=== PATIENT | female | born 1975 | race Caucasian/White ===

== ENCOUNTER 2023-09-15 09:03 | Outpatient (OUT) | payer OTHER, SELFPAY ==
[2023-09-15 09:49] LABS: Uric Acid 4.9 mg/dL (2.6-6.0)
== END 2023-09-15 09:04 | disposition home or self-care (01) ==
LOC: LAB 09:08
PROVIDERS: PCP Family Medicine; Visit Provider Family Medicine
DX: M25.50 Pain in unspecified joint (principal)
CPT/HCPCS: 36415; 84550

== ENCOUNTER 2024-06-04 12:26 | Outpatient (OUT) | payer OTHER, SELFPAY ==
--- NOTE | 2024-06-04 12:34 | ECG_ITS ---
[facility] Test Date: 2024-06-04 Pat Name: RUBIA FUNG Department: Room: - Gender: Female Operating Systems Specialist: : 1975 Requested By: Chun Early Order Number: [id number] Reading MD: PRATIK WILDER Measurements Intervals [place] Rate: 94 P: 59 [place]: 119 QRS: 34 QRSD: 83 T: 40 QT: 336 QTc: 420 Interpretive Statements SINUS RHYTHM WITH SHORT [place] INTERVAL No previous ECG available for comparison Electronically Signed On 06-04-2024 18:08:50 EDT by PRATIK WILDER
--- NOTE | 2024-06-04 13:13 | PM.PRESUREVA ---
History of Present Illness History of Present Illness Chief complaint: right shoulder cuff tear Narrative: Patient presents for preadmission testing. Please see HPI from Dr. Early dated May 31, 2024. Review of Systems ROS Narrative REVIEW OF SYSTEMS: Negative except as stated in HPI, ten or more systems reviewed. Constitutional: No fever, chills, weakness ENT: No sore throat or epistaxis Cardiovascular: No edema, chest pain, palpitations, or activity intolerance Respiratory: No shortness of breath, cough, or wheezing Gastrointestinal: No abdominal pain, constipation, diarrhea, or vomiting Genitourinary: No dysuria or hematuria Neurological: No numbness, tingling, weakness, or headache Psychiatric: No mood changes PFSH [facility] Medical History (Updated 06/04/24 @ 12:56 by Kacie Hinkle NP) Fibromyalgia ?M79.7 - Fibromyalgia (ICD-10) Gout ?M10.9 - Gout, unspecified (ICD-10) Neck pain ?M54.2 - Cervicalgia (ICD-10) Carpal tunnel syndrome ?G56.00 - Carpal tunnel syndrome, unspecified upper limb (ICD-10) Back pain ?M54.9 - Dorsalgia, unspecified (ICD-10) Arthritis ?M19.90 - Unspecified osteoarthritis, unspecified site (ICD-10) Depression ?F32.A - Depression, unspecified (ICD-10) COVID-19 ?U07.1 - COVID-19 (ICD-10) Seasonal allergies ?J30.2 - Other seasonal allergic rhinitis (ICD-10) Restless leg ?G25.81 - Restless legs syndrome (ICD-10) Migraine ?G43.909 - Migraine, unspecified, not intractable, without status migrainosus (ICD-10) GERD (gastroesophageal reflux disease) ?K21.9 - Gastro-esophageal reflux disease without esophagitis (ICD-10) Meralgia paraesthetica ?G57.10 - Meralgia paresthetica, unspecified lower limb (ICD-10) Endometriosis ?N80.9 - Endometriosis, unspecified (ICD-10) Shoulder pain ?M25.519 - Pain in unspecified shoulder (ICD-10) Rotator cuff tear ?M75.100 - Unspecified rotator cuff tear or rupture of unspecified shoulder, not specified as traumatic (ICD-10) Surgical History (Updated 06/04/24 @ 12:56 by Kacie Hinkle NP) History of arthroscopy of knee ?Z98.890 - Other specified postprocedural states (ICD-10) S/P cubital tunnel release ?Z98.890 - Other specified postprocedural states (ICD-10) History of carpal tunnel release ?Z98.890 - Other specified postprocedural states (ICD-10) History of carpal tunnel release ?Z98.890 - Other specified postprocedural states (ICD-10) History of section ?Z98.891 - History of uterine scar from previous surgery (ICD-10) History of section ?Z98.891 - History of uterine scar from previous surgery (ICD-10) History of hysterectomy ?Z90.710 - Acquired absence of both cervix and uterus (ICD-10) History of repair of rotator cuff ?Z98.890 - Other specified postprocedural states (ICD-10) Family History (Updated 06/04/24 @ 12:56 by Kacie Hinkle NP) Other Family history of breast cancer Family history of stroke Social History (Updated 06/04/24 @ 12:51 by Kacie Hinkle NP) Within the past year, how often did you have a drink containing alcohol: monthly or less Smoking status: Never smoker Non-prescribed substance use: denies use Previous occupational history: Customer Service Rep Highest level of school completed/degree received: high school graduate Meds Home Medications and Allergies Home Medications ?Medication ?Instructions ?Recorded ?Confirmed ?Type Lactobacil.acidophilus-Bifido.animalis 1 cap PO DAILY 06/04/24 06/04/24 History 5 billion cell sprinkle capsule (Probiotic) acetaminophen 500 mg capsule 1,000 mg PO Q6H PRN pain 06/04/24 06/04/24 History apple cider vinegar 600 mg capsule mg PO 06/04/24 History calcium 100 mg capsule mg PO 06/04/24 History duloxetine 30 mg capsule,delayed 30 mg PO BID 06/04/24 06/04/24 History release glucosamine sulf dipot cap PO 06/04/24 History chlr,msm,chond 550 mg-C 30 mg-ej 1 mg capsule (Glucosamine Chondroitin) multivitamin (Daily Multi-Vitamin 1 tab PO DAILY 06/04/24 06/04/24 History tablet) omeprazole 40 mg capsule,delayed 40 mg PO QPM 06/04/24 06/04/24 History release piroxicam 20 mg capsule 20 mg PO DAILY 06/04/24 06/04/24 History ropinirole 2 mg tablet 2 mg PO QPM 06/04/24 06/04/24 History sumatriptan succinate 50 mg tablet 50 mg PO Q2H 06/04/24 06/04/24 History topiramate 25 mg tablet 25 mg PO Q12H 06/04/24 06/04/24 History vitamin B complex 1 tab PO DAILY 06/04/24 06/04/24 History Allergies Allergy/AdvReac Type Severity Reaction Status Date / Time azithromycin Allergy hand Verified 06/04/24 12:42 swelling Exam Narrative Exam Narrative: Constitutional: Awake, alert, comfortable, well-appearing, nontoxic, interactive, vital signs as charted Head: Normocephalic, atraumatic Neck: Supple, normal appearance, normal range of motion, no meningeal signs, no lymphadenopathy Respiratory: No respiratory distress, breath sounds clear Cardiovascular: Regular rate and rhythm, strong and regular heart tones Skin: No rashes or induration, no lesions, only visible skin inspected Neuro: No neurological deficits, normal sensation Psychiatric: Oriented ?3, normal affect Assessment and Plan Assessment and Plan (1) Shoulder pain: (2) Rotator cuff tear: Plan Right shoulder arthroscopic rotator cuff repair and distal clavicle excision scheduled with Dr. Early June 14, 2024.
[2024-06-04 13:20] LABS: Basophils Percent Auto 0.4 % (0.2-2.0); Eosinophils Absolute Auto 0.1 10^3/uL (0.0-0.7); Eosinophils Percent Auto 1.4 % (0.9-7.0); Hematocrit 42.2 % (36.0-48.0); Hemoglobin 14.3 g/dL (12.0-16.0); Immature Granulocytes Abs Auto 0.01 10^3/uL (0.00-0.03); Immature Granulocytes Pct Auto 0.2 % (0.0-0.5); Lymphocytes Absolute Auto 1.7 10^3/uL (1.2-3.8); Lymphocytes Percent Auto 29.9 % (20.5-60.0); Mean Corpuscular HGB Conc 33.9 g/dL (29.9-35.2); Mean Corpuscular Hemoglobin 31.5 pg (26.7-34.0); Mean Platelet Volume 9.1 fL (9.5-13.5); Monocytes Absolute Auto 0.5 10^3/uL (0.3-0.8); Monocytes Percent Auto 8.8 % (1.7-12.0); Neutrophils Absolute Auto 3.4 10^3/uL (1.4-6.5); Neutrophils Percent Auto 59.3 % (43.0-75.0); Platelet Count 233 10^3/uL (150-450); Red Blood Count 4.54 10^6/uL (4.20-5.40); Red Cell Distribution Width 11.5 % (11.0-15.0); White Blood Count 5.7 10^3/uL (4.0-11.0)
[2024-06-04 14:20] LABS: Anion Gap 15.8; BUN Creatinine Ratio 27.3; Calcium 8.9 mg/dL (8.5-10.1); Carbon Dioxide 23.3 mmol/L (21.0-32.0); Chloride 103 mmol/L (98-107); Estimated GFR (African America >60 (>=60); Estimated GFR (Non-African Ame >60 (>=60); Glucose 105 mg/dL (74-106); Potassium 4.1 mmol/L (3.5-5.1); Sodium 138 mmol/L (136-145)
== END 2024-06-04 12:27 | disposition home or self-care (01) ==
LOC: PST 12:27
PROVIDERS: PCP Family Medicine; Visit Provider Orthopaedic Surgery
DX: Z01.810 Encounter for preprocedural cardiovascular examination (principal); Z01.812 Encounter for preprocedural laboratory examination; Z01.818 Encounter for other preprocedural examination; M75.121 Complete rotator cuff tear or rupture of right shoulder, not specified as traumatic
CPT/HCPCS: 80048; 85025; 93005; G0463

== ENCOUNTER 2024-06-14 11:55 | Day surgery (SDC) | payer OTHER, SELFPAY ==
[2024-06-04 13:09] VITALS: BP 109/75; PULSE 96; TEMP 36.4; O2SAT 94; BMI 33.2
[2024-06-14] VITALS (11 sets, daily range): BP systolic 106–121; BP diastolic 58–80; PULSE 71–96; TEMP 36.2–36.4; O2SAT 90–98; BMI 33.4
[2024-06-14 12:33] LABS: Basophils Percent Auto 0.3 % (0.2-2.0); Eosinophils Absolute Auto 0.1 10^3/uL (0.0-0.7); Eosinophils Percent Auto 1.4 % (0.9-7.0); Hemoglobin 13.2 g/dL (12.0-16.0); Lymphocytes Absolute Auto 1.3 10^3/uL (1.2-3.8); Lymphocytes Percent Auto 38.3 % (20.5-60.0); Mean Corpuscular Hemoglobin 31.3 pg (26.7-34.0); Mean Corpuscular Volume 94.8 fL (81.0-99.0); Mean Platelet Volume 9.1 fL (9.5-13.5); Monocytes Absolute Auto 0.3 10^3/uL (0.3-0.8); Monocytes Percent Auto 7.4 % (1.7-12.0); Neutrophils Absolute Auto 1.8 10^3/uL (1.4-6.5); Neutrophils Percent Auto 52.6 % (43.0-75.0); Platelet Count 203 10^3/uL (150-450); Red Blood Count 4.22 10^6/uL (4.20-5.40); Red Cell Distribution Width 11.6 % (11.0-15.0); White Blood Count 3.5 10^3/uL (4.0-11.0)
[2024-06-14] MEDS: LACTATED RINGER'S SOLUTION 1,000 ML 50 ML IV ×2 (12:48→15:31)
[2024-06-14] MEDS: CEFAZOLIN SODIUM/DEXTROSE,ISO 2 GM/50 ML PIGGYBACK IV (13:41)
--- NOTE | 2024-06-14 13:54 | PM.ORPRC ---
Procedure Note Date of procedure: 06/14/24 Pre-op diagnosis: 1. Right shoulder rotator cuff tear 2. Right acromioclavicular joint arth Procedure: Operation: Right shoulder arthroscopic rotator cuff repair Right shoulder arthroscopic distal clavicle excision Operative procedure: After informed consent was obtained the patient is brought to the operating room where general anesthetic was administered. Preoperatively regional block was placed. Patient was placed in the beachchair position. Exam under anesthesia the right shoulder revealed full range of motion and no instability. The right shoulder was prepped and draped in usual sterile fashion. Diagnostic arthroscopy was performed the standard anterior, posterior, and lateral arthroscopy portals. Findings included partial-thickness tear of the upper 2 cm of subscapularis tendon. Biceps tendon was intact without any tearing. Labrum was intact circumferentially. Grade III chondromalacia upper 1 cm humeral head which was debrided with arthroscopic shaver back to stable edge. Prior supraspinatus repair was torn. There was 2 components to the tear that was delaminated. The superior portion was severely degenerative and this was debrided to more healthy tissue back to the glenoid which was where the inferior delaminated portion was which was not degenerative. Infraspinatus was intact. Axillary recess had no loose bodies. Attention was turned to repair of the subscapularis tendon. Lesser tuberosity was debrided down to bleeding bed of bone. Degenerative subscapularis was debrided to more healthy tissue at the tear site. 1 Arthrex 5.5 FT bio composite suture anchor was placed in the lesser tuberosity. 90 degree suture lasso was used to pass 2 sutures through the torn subscapularis. These were then tied in a simple fashion repairing the tendon back down to the bone. Arthroscope was introduced in the subacromial space and there was minimal bursal inflammation was removed the arthroscopic shaver. In the distal clavicle was identified and found to be arthritic. Distal 7 mm of clavicle excised with arthroscopic shaver. There was a large cyst within the distal clavicle. Attention was next turned to the rotator cuff repair of the supraspinatus. Arthrex suture tape and 1 Arthrex fiber tape were placed in an inverted horizontal fashion through both delaminated portions of the torn rotator cuff. These were then repaired to the greater tuberosity with 1 Arthrex 5.5 swivel lock. Solid repair was achieved. Shoulder was drained of arthroscopy fluid. Portals were closed with a nylon suture. Sterile dressing was placed. UltraSling was placed. Patient was awakened and brought to the recovery room in stable condition. There were no intraoperative or immediate postoperative complications. Anesthesia: GETA and regional Surgeon: Chun Early Estimated blood loss (mL): 5 Pathology: none sent Condition: stable Disposition: PACU
[2024-06-14] MEDS: EPINEPHRINE HCL PF 1 MG/ML AMPULE 4 MG IO (15:35)
== END 2024-06-14 17:14 | disposition home or self-care (01) ==
PROVIDERS: Anesthesiology; PCP Family Medicine; Visit Provider Orthopaedic Surgery
PROC: (CPT 1630; principal; 2024-06-14 13:40)
DX: M75.121 Complete rotator cuff tear or rupture of right shoulder, not specified as traumatic (principal); M19.011 Primary osteoarthritis, right shoulder; Z90.710 Acquired absence of both cervix and uterus; M79.7 Fibromyalgia; G89.29 Other chronic pain; K21.9 Gastro-esophageal reflux disease without esophagitis
CPT/HCPCS: 29824; 29827; 36415; 64415; 85025; C1713; J0690; J1100; J1885; J2250; J2371; J2405; J2704; J2710; J3010

== ENCOUNTER 2024-07-02 08:00 | Outpatient (OUT) | payer OTHER, SELFPAY ==
[2024-07-02 08:37] LABS: Basophils Percent Auto 0.3 % (0.2-2.0); Eosinophils Absolute Auto 0.1 10^3/uL (0.0-0.7); Eosinophils Percent Auto 2.4 % (0.9-7.0); Hematocrit 38.4 % (36.0-48.0); Hemoglobin 12.8 g/dL (12.0-16.0); Lymphocytes Absolute Auto 1.4 10^3/uL (1.2-3.8); Lymphocytes Percent Auto 37.3 % (20.5-60.0); Mean Corpuscular HGB Conc 33.3 g/dL (29.9-35.2); Mean Corpuscular Hemoglobin 30.8 pg (26.7-34.0); Mean Corpuscular Volume 92.3 fL (81.0-99.0); Mean Platelet Volume 9.1 fL (9.5-13.5); Monocytes Absolute Auto 0.3 10^3/uL (0.3-0.8); Monocytes Percent Auto 7.6 % (1.7-12.0); Neutrophils Percent Auto 52.4 % (43.0-75.0); Platelet Count 235 10^3/uL (150-450); Red Blood Count 4.16 10^6/uL (4.20-5.40); Red Cell Distribution Width 11.5 % (11.0-15.0); White Blood Count 3.8 10^3/uL (4.0-11.0)
[2024-07-02 09:07] LABS: Estimated Average Glucose 103 mg/dL; Glycohemoglobin A1C 5.2 % (4.5-6.2)
[2024-07-02 09:17] LABS: Alanine Aminotransferase 45 U/L (14-59); Albumin Globulin Ratio 1.1; Albumin Level 4.1 g/dL (3.4-5.0); Alkaline Phosphatase 88 U/L (46-116); Anion Gap 14.5; Aspartate Amino Transferase 20 U/L (15-37); Bilirubin Direct 0.1 mg/dL (0.0-0.2); Bilirubin Total 0.7 mg/dL (0.2-1.0); Calcium 9.5 mg/dL (8.5-10.1); Carbon Dioxide 26.4 mmol/L (21.0-32.0); Chloride 104 mmol/L (98-107); Chol HDL Ratio 5.1; Cholesterol 264 mg/dL (<=200); Estimated GFR (African America >60 (>=60); Estimated GFR (Non-African Ame >60 (>=60); Globulin 3.6 g/dL; Glucose 98 mg/dL (74-106); HDL Cholesterol 52 mg/dL (40-60); Potassium 3.9 mmol/L (3.5-5.1); Sodium 141 mmol/L (136-145); Total Protein 7.7 g/dL (6.4-8.2); Triglycerides 235 mg/dL (<=150)
[2024-07-03 04:08] LABS: Estradiol <5.0 pg/mL (.); Progesterone 0.2 ng/mL (.)
[2024-07-03 08:11] LABS: DHEA-Sulfate 75.7 ug/dL (41.2-243.7)
[2024-07-06 15:09] LABS: Estrone, Serum 16 pg/mL (.)
[2024-07-10 00:08] LABS: Estrogens, Total 41 pg/mL (.)
== END 2024-07-02 08:01 | disposition home or self-care (01) ==
PROVIDERS: PCP Family Medicine; Visit Provider Family Medicine
DX: Z00.00 Encounter for general adult medical examination without abnormal findings (principal); Z78.0 Asymptomatic menopausal state; E66.9 Obesity, unspecified
CPT/HCPCS: 36415; 80048; 80061; 80076; 82627; 82670; 82672; 82679; 83036; 84144; 84443; 85025

== ENCOUNTER 2024-07-07 08:54 | Outpatient (OUT) | payer OTHER, SELFPAY ==
--- NOTE | 2024-07-07 08:57 | XR_ITS ---
[address] [address] Patient Name: RUBIA FUNG MRN: [id number] date: 1975 Sex: F Assigned Patient Location: [facility] Current Patient Location: [facility] Accession/Order Number: [id number] Exam Date: 07/07/2024 09:20 Report Date: 07/07/2024 11:37 At the request of: DEREK RAMIREZ Procedure: XR DEXA axial skeleton EXAMINATION: XR DEXA axial skeleton HISTORY: Osteopenia Of Lumbar Spine COMPARISON: DEXA bone densitometry 02/20/2018 TECHNIQUE: Dual-energy X-ray absorptiometry (DXA) was performed. FINDINGS: SPINE ANALYSIS: Average bone mineral density is 0.968 g/cm2. T-score (standard deviation relative to young adult mean): -1.9 . -8.3% change since prior study. HIP ANALYSIS: Lowest bone mineral density is within the left femoral neck, 0.768 g/cm2. T-score (standard deviation relative to young adult mean): -1.9 . -10.7% change since prior study. XR/XR DEXA axial skeleton IMPRESSION: World Health Organization Classification: Osteopenia - Moderate Fracture Risk FRAX: Cannot calculate. Pharmacologic treatment recommendations * No uniform recommendation applies to all patients. Management plans must be individualized. * Consider initiating pharmacologic treatment in postmenopausal women and men >= 50 years of age who have the following: Primary fracture prevention: * T-score <= - 2.5 at the femoral neck, total hip, lumbar spine, 33% radius (some uncertainty with existing data) by DXA. * Low bone mass (osteopenia: T-score between - 1.0 and - 2.5) at the femoral neck or total hip by DXA with a 10-year hip fracture risk >= 3% or a 10-year major osteoporosis-related fracture risk >= 20% (i.e., clinical vertebral, hip, forearm, or proximal humerus) based on the [place]-adapted FRAXregistered model. Secondary fracture prevention: * Fracture of the hip or vertebra regardless of BMD [4, 5]. * Fracture of proximal humerus, pelvis, or distal forearm in persons with low bone mass (osteopenia: T-score between - 1.0 and - 2.5). The decision to treat should be individualized in persons with a fracture of the proximal humerus, pelvis, or distal forearm who do not have osteopenia or low BMD [12, 13]. David MS, Melissa SL, Gabriel KL, Luther EM, Bull KG, AJ, Miguelina ES. The clinician's guide to prevention and treatment of osteoporosis. Osteoporos Int. 2021;33(10):1987-2353. doi: 10.1007/f28637-600-15583-p. Epub 2021Mar 28. Erratum in: Osteoporos Int. 2021Jun 27;: PMID: [id number]; PMCID: [id number]. Electronically authenticated by: KELSEY BROOKE Date: 07/07/2024 11:37
--- NOTE | 2024-07-07 08:57 | MM_ITS ---
Patient Name: RUBIA FUNG MR#: [id number] : 1975 Exam Date: 07/07/2024 Ordering Doctor: DR Jalil Live . RADIOLOGY REPORT PROCEDURE: MM TOMOSYNTHESIS SCREENING BI COMPARISON: None. INDICATIONS: Screening Calculator Name NCI Breast Cancer Risk Assessment Tool 5 Year Breast Cancer Risk 1.00% Lifetime Breast Cancer Risk 11.40% Personal Breast Cancer No Personal Ovarian Cancer No Treatments None Family Cancers Grandmother-maternal with breast cancer at age 80. LOCATION: [facility] BREAST COMPOSITION: There are scattered areas of fibroglandular density. FINDINGS: DIAGNOSTIC CATEGORY 0--INCOMPLETE: NEED ADDITIONAL IMAGING EVALUATION. RIGHT BREAST: Within the anterior lower-outer quadrant is a 1.7 cm oval smoothly marginated mass versus complex cyst; possibly hamartoma spot magnification views and ultrasound evaluation recommended.. LEFT BREAST: No significant suspicious finding. RECOMMENDATIONS: ADDITIONAL MAMMOGRAPHIC VIEWS REQUIRED: RIGHT BREAST - RIGHT CRANIOCAUDAL SPOT MAGNIFICATION VIEW - RIGHT OBLIQUE SPOT MAGNIFICATION VIEW - ULTRASOUND: RIGHT BREAST PLEASE NOTE: A NORMAL MAMMOGRAM DOES NOT EXCLUDE THE POSSIBILITY OF BREAST CANCER. A CLINICALLY SUSPICIOUS PALPABLE LUMP SHOULD BE BIOPSIED. Dictated by: Chun Haynes M.D. on 07/07/2024 at 14:08 Approved by: Chun Haynes M.D. on 07/07/2024 at 14:41
--- OUTSIDE RECORDS SUMMARY | 2024-07-07 09:11 | XMS_ITS | CCD ---
Author Organization [facility] Team Providers Care Veneer Layer Name Role Phone ASHLEY, DR JALIL Valderrama Admitting Unavailable ASHLEY, DR JALIL Valderrama Primary Care Unavailable ASHLEY, DR JALIL Valderrama Consulting Unavailable ASHLEY, DR JALIL Valderrama Attending Unavailable ASHLEY, DR JALIL Valderrama Admitting Unavailable KEMPTON, DR LUCA Bruner Consulting Unavailable LIVIAERERosendo, DR JALIL Valderrama Primary Care Unavailable ASHLEY, DR JALIL Valderrama Attending Unavailable ASHLEY, DR JALIL Valderrama Consulting Unavailable Jalil Ramirez MD Primary Care Provider [phone] GRAY DIAL JR Referring Unavailabl e LIVIAEREJALIL Robbins Primary Care Unavailable ASHLEY, JALIL Attending Unavailable SANTOSH FARLEY Attending Unavailable QUINN FIGUEROA Attending Unavailable QUINN FIGUEROA Referring Unavailable CECELIA NIEVES Attending Unavailable QUINN FIGUEROA Referring Unavailable CECELIA NIEVES Attending Unavailable QUINN FIGUEROA Referring Unavailable RADHA PURVIS Attending Unavailable QUINN FIGUEROA Referring Unavailable ROBERTA LEIVA Attending Unavailable QUINN FIGUEROA Referring Unavailable QUINN FIGUEROA Attending Unavailable QUINN FIGUEROA Referring Unavailable SANTOSH FARLEY Attending Unavailable JR. DIAL GEORGE C Attending Unavaila SANTOSH Xiao Referring Unavailable JALIL RAMIREZ Attending Unavailable SANTOSH FARLEY Attending Unavailable FLORECITA JO Attending Unavailable QUINN FIGUEROA Referring Unavailable Allergies Allergy Classification Reported Allergen(s) Allergy Type Date of Onset Reaction(s) Facility (1 source) Acetaminophen / oxyCODONE Drug Allergy 1 [facility] Repository (1 source) Amoxicillin Drug Allergy [facility] Repository (1 source) Amoxicillin / Clavulanate Drug Allergy 6 [facility] Rep[facility] (1 source) Azithromycin Drug Allergy 5 [facility] Rep[facility] (1 source) Sulfamethoxazole / Trimethoprim Drug Allergy 6 [facility] Repository (5 sources) Azithromycin; Translations: [AZITHROMYCIN] Drug Allergy 7 Swelling [facility] Medications Current Medications Medication Drug Class(es) Dates Sig (Normalized) Sig (Original) omeprazole 40 mg delayed release oral capsule (4 sources) Proton Pump Inhibitor take 1 capsule by mouth in the morning omeprazole (PriLOSEC) [address] capsule Take 40 mg by mouth in the morning. 0 Active piroxicam 20 mg oral capsule (5 sources) Nonsteroidal Anti-inflammatory Drug Start: 01-09-2024 take 1 capsule by mouth in the morning piroxicam (Feldene) 20 MG capsule Indications: Cervical spondylosis without myelopathy Take 1 capsule (20 mg) by mouth in the morning. 90 capsule 3 01/09/2024 Active Start: 05-11-2023 End: 01-08-2024 piroxicam (Feldene) 20 MG ca psule pregabalin 50 mg oral capsule (4 sources) Start: 12-02-2023 take 1 capsule by mouth in the morning, then take 2 capsules by mouth at bedtime pregabalin (Lyrica) 50 MG capsule Indications: Neuropathy 1 po am and 2 po hs 90 capsule 2 12/02/2023 Active rOPINIRole 2 mg oral tablet (4 sources) Nonergot Dopamine Agonist Start: 10-28-2023 take 1 tablet by mouth at bedtime rOPINIRole (Requip) 2 MG tablet Indications: Restless Leg Syndrome Take 1 tablet (2 mg) by mouth at bedtime. 30 tablet 5 10/28/2023 Active SUMAtriptan 50 mg oral tablet (4 sources) Serotonin-1b and Serotonin-1d Receptor Agonist Start: 12-31-2023 SUMAtriptan (Imitrex) 50 MG tablet Indications: Chronic migraine without aura without status migrainosus, not intractable (CMS/HCC) Take 1 tablet (50 mg) by mouth 1 (one) time if needed for migraine May repeat dose once in 2 hours if no relief. Do not exceed 2 doses in 24 hours. 9 tablet 5 12/31/2023 Active traZODone hydrochloride 50 mg oral tablet (4 sources) Serotonin Reuptake Inhibitor Start: 01-05-2024 take 1 tablet by mouth at bedtime traZODone (Desyrel) 50 MG tablet Indications: Insomnia, unspecified TAKE 1 TABLET BY MOUTH AT BEDTIME 60 tablet 0 01/05/2024 Active Start: 12-02-2023 take 1 tablet by kassi th at bedtime traZODone (Desyrel) 50 MG tablet Indications: Insomnia, unspecified TAKE 1 TABLET BY MOUTH AT BEDTIME 30 tablet 5 12/02/2023 Active 24 hr venlafaxine 150 mg extended release oral capsule (4 sources) Serotonin and Norepinephrine Reuptake Inhibitor Start: 01-05-2024 End: 01-04-2025 take 1 capsule by mouth every twenty-four hours in the morning venlafaxine XR (Effexor XR) 150 MG 24 hr capsule Indications: Insomnia, unspecified , Generalized anxiety disorder (CMS/HCC) Take 1 capsule (150 mg) by mouth in the morning. 30 capsule 11 01/05/2024 01/04/2025 Active Start: 05-02-2023 take 1 capsule by mo uth every twenty-four hours in the morning venlafaxine XR (Effexor XR) 150 MG 24 hr capsule Take 150 mg by mouth in the morning. 0 05/02/2023 Active Problems Active Problems Problem Classification Problem Date Documented Date Episodic/Chronic Anxiety disorders (4 sources) Generalized anxiety disorder; Translations: [Generalized anxiety disorder] Onset: 11-19-2023 11-19-2023 Chronic Esophageal disorders (4 sources) Gastroesophageal reflux disease; Translations: [Gastro-esophageal reflux disease without esophagitis] Onset: 11-19-2023 11-19-2023 Chronic Headache; including migraine (4 sources) Migraine without aura, not refractory ; Translations: [Chronic migraine without aura, not intractable, without status migrainosus] Onset: 11-19-2023 11-19-2023 Chronic Joint disorders and dislocations; trauma-related (8 sources) Chondromalacia of patella; Translations: [Chondromalacia patellae, unspecified knee] Onset: 06-05-2023 06-05-2023 Chronic Miscellaneous mental health disorders (4 sources) Primary insomnia; Translations: [Primary insomnia] Onset: 12-31-2023 12-31-2023 Chronic Mood disorders (4 sources) Recurrent major depressive episodes, mild ; Translations: [Major depressive disorder, recurrent, mild] Onset: 11-19-2023 11-19-2023 Chronic Osteoarthritis (4 sources) Osteoarthritis of left knee joint; Translations: [Unilateral primary osteoarthritis, left knee] Onset: 11-19-2023 11-19-2023 Chronic Other bone disease and musculoskeletal deformities (4 sources) Osteopenia; Translations: [Other specified disorders of bone density and structure, unspecified site] Onset: 11-19-2023 11-19-2023 Episodic Other connective tissue disease (5 sources) Trochanteric bursitis of right hip; Translations: [Trochanteric bursitis, right hip] Onset: 09-22-2023 09-22-2023 Episodic Other connective tissue disease (4 sources) Fibromyalgia; Translations: [Fibromyalgia] Onset: 11-19-2023 11-19-2023 Episodic Other hereditary and degenerative nervous system conditions (4 sources) Restless legs; Translations: [Restless legs syndrome] Onset: 11-19-2023 11-19-2023 Chronic Other liver diseases (4 sources) Abnormal levels of other serum enzymes; Translations: [ABNORMAL LEVELS OTHER SERUM ENZYMES] Onset: 03-22-2023 Episodic Other nervous system disorders (4 sources) Median neuropathy; Translations: [Other lesions of median nerve, bilateral upper limbs] Onset: 05-12-2023 05-12-2023 Chronic Other nervous system disorders (4 sources) Difficulty walking; Translations: [Difficulty in walking, not elsewhere classified] Onset: 06-05-2023 06-05-2023 Chronic Other nervous system disorders (4 sources) Neuropathy; Translations: [Polyneuropathy, unspecified] Onset: 06-05-2023 06-05-2023 Chronic Other nervous system disorders (4 sources) Meralgia paresthetica of right leg; Translations: [Meralgia paresthetica, right lower limb] Onset: 12-05-2021 06-05-2023 Chronic Other nervous system disorders (4 sources) Carpal tunnel syndrome of right wrist; Translations: [Carpal tunnel syndrome, right upper limb] Onset: 06-05-2023 06-05-2023 Chronic Other nervous system disorders (4 sources) Bilateral carpal tunnel syndrome; Translations: [Carpal tunnel syndrome, bilateral upper limbs] Onset: 09-22-2023 3 Chronic Other nervous system disorders (4 sources) Brachial plexus disorder; Translations: [Brachial plexus disorders] Onset: 09-22-2023 09-22-2023 Chronic Other non-traumatic joint disorders (4 sources) Pain in unspecified joint; Translations: [PAIN IN UNSPECIFIED JOINT] Onset: 03-10-2023 Episodic Other non-traumatic joint disorders (4 sources) Joint pain; Translations: [Pain in unspecified joint] Onset: 11-19-2023 11-19-2023 Episodic Spondylosis; intervertebral disc disorders; other back problems (9 sources) Thoracic spondylosis without myelopathy; Translations: [Spondylosis without myelopathy or radiculopathy, thoracic region] Onset: 05-18-2020 06-05-2023 Chronic Past or Other Problems Problem Classification Problem Date Documented Da te Episodic/Chronic Other connective tissue disease (4 sources) Bilateral trochanteric bursitis; Translations: [Trochanteric bursitis, right hip] Onset: 05-12-2023 06-18-2023 Episodic Spondylosis; intervertebral disc disorders; other back problems (8 sources) Cervical radiculopathy; Translations: [Radiculopathy, cervical region] Onset: 03-06-2022 05-12-2023 Episodic Results Test Name Value Interpretation Reference Range Facility MR SHOULDER RIGHT WO IV CONT RASTon 03-02-2024 MR SHOULDER RIGHT WO IV CONTRAST EXAMINATION: MR SHOULDER RIGHT WO IV CONTRAST HISTORY: Anterior and lateral right shoulder pain for 1 to 2 months. No recent injury. History of rotator cuff surgery in July 2023. TECHNIQUE: Routine non-contrast MRI of the shoulder, right side COMPARISON: MRI 05/28/2023. Radiographs 01/22/2024. RESULT: Rotator Cuff Tendons: Full-thickness tearing involving distal mid fibers of the supraspinatus, measuring around 9 mm in AP dimension, with medial retraction of the torn fibers around 1.2 cm, with underlying tendinosis. Changes from prior rotator cuff repair with suture anchor in the region of the junction of supraspinatus and subscapularis, with grossly intact appearing fibers at this site, with increased signal of these fibers which may be postsurgical or related to tendinosis. Some intact appearing more posterior/junctional fibers of supraspinatus. Mild to moderate tendinosis involving infraspinatus, without tear, with reactive cystic change at the insertion and underlying tendinosis. Teres minor appears intact. Long Head Biceps Tendon: Appears intact with appropriate location. Muscle: Muscle bulk and signal intensity are within normal limits. Labrum: Grossly intact. Bones and Marrow: No evidence of fracture or bone marrow replacing process. Glenohumeral Joint: No measurable full-thickness chondral defect. No joint effusion. Acromioclavicular Joint: Mild to moderate degenerative changes with downsloping of the acromion and small undersurface osteophytes. Other: Fluid extending into the subacromial subdeltoid bursa. IMPRESSION: Full-thickness tearing involving mid fibers of distal supraspinatus as discussed. Grossly intact appearing rotator cuff fibers at the suture anchor. ELECTRONICALLY SIGNED BY: Brandon Lloyd MD Normal Not Available MR HIP RIGHT WO IV CONTRASTo n 10-28-2023 MR HIP RIGHT WO IV CONTRAST EXAMINATION: MR HIP RIGHT WO IV CONTRAST History: Right lateral hip pain for 6 months with chronic lateral thigh numbness. Meralgia paresthetica on the right. Technique: Routine MRI of the pelvis and hip(s). With small [id number] imaging of the right hip. Comparison: None Result: RIGHT HIP: Osteophytes without distinct measurable full-thickness chondral defect. No joint effusion. No evidence for fracture. Fraying/tearing of the anterior superior labrum. LEFT HIP: Unremarkable on large field of view imaging. SI JOINTS: Normal appearing sacroiliac joints bilaterally. PUBIC SYMPHYSIS: Normal appearance. BONE MARROW: There is no evidence of fracture, bone bruise, marrow replacing lesion or osteonecrosis. TENDONS: The rectus femoris tendons, iliopsoas tendons, hamstring tendons, hip adductor and abductor tendons appear to be intact bilaterally. Small amount of edema signal at the greater trochanters bilaterally suggestive of minimal bursitis. MUSCLE: Muscle bulk and signal intensity are within normal limits. NERVES: The visualized portions of the lumbosacral plexus and sciatic nerves appear to be within normal limits. VISCERAL PELVIS: Limited evaluation. Colonic diverticulosis. Bladder decompressed. LOWER LUMBAR SPINE: Limited evaluation unremarkable. OTHER: No suspicious mass or lesion in the region of the right lateral femoral cutaneous nerve. IMPRESSION: Mild degenerative changes right hip. Trace bilateral greater trochanteric bursitis. ELECTRONICALLY SIGNED BY: Brandon Lloyd MD Normal Not Available US SINGLE QUAD RT UPPERon US SINGLE QUAD RT UPPER EXAMINATION: US SINGLE QUAD RT UPPER HISTORY: High enzyme level in serum COMPARISON: No relevant comparison available. FINDINGS: The visualized pancreas is normal The liver is normal in size and contour. Mild increased echotexture. The liver measures 14.9 cm in length. No focal hepatic mass. Hepatopedal flow in the main portal vein with velocity of 20 cm/s The gallbladder is normal in size. The wall measures 1.9 mm, normal. The common bile duct measures 5 mm, normal. Negative sonographic Escudero sign The right kidney is normal in appearance measuring 10.6 x 4.4 x 5.8 cm. No free fluid IMPRESSION: Mildly increased hepatic echotexture suggesting hepatic steatosis Electronically authenticated by: LUCA JUAN Date: 2023-03-22 13:58 Normal [facility] KIKE by IFAon 03-12-2023 Antinuclear Antibodies, IFA Negative Normal [facility] Comment on above: Result Comment: Nega tive <1:80 Borderline 1:80 Positive >1:80 ICAP nomenclature: AC-0 For more information about Hep-2 cell patterns use ANApatterns.org, the official website for the International Consensus on Antinuclear Antibody (KIKE) Patterns (ICAP). Performed By: #### A NAIFA #### [facility] [address] [place] [address] Dr. Liana Ash RHEUMATOID FACTORon 03-11-20 23 RA Latex Turbid. <10.0 Normal <14.0 [facility] Comment on above: Performed By: #### R F #### [facility] [address] [place] [address] Dr. Liana Ash CBC AUTO DIFFon 03-10-2023 BASO # 0.0 103/ul Normal 0.0-0.1 [facility] Comment on above: Performed By: #### C BC #### [facility] [address] [place] [address] Dr. Liana Ash Basophils/100 WBC (Bld) 0.2 % Normal 0.2-2.0 [facility] Comment on above: Performed By: #### C BC #### [facility] [address] [place] [address] Dr. Liana Ash EO # 0.1 103/ul Normal 0.0-0.7 [facility] Comment on above: Performed By: #### C BC #### [facility] [address] [place] [address] Dr. Liana Ash Eosinophils/100 WBC (Bld) 1.6 % Normal 0.9-7.0 [facility] Comment on above: Performed By: #### C BC #### [facility] [address] [place] [address] Dr. Liana Ash Erythrocyte distribution width (RBC) [Ratio] 11.8 % Normal 11.0-15.0 [facility] Comment on above: Performed By: #### C BC #### [facility] [address] [place] [address] Dr. Liana Ash Hematocrit (Bld) [Volume fraction] 38.5 % Normal 36.0-48.0 [facility] Comment on above: Performed By: #### C BC #### [facility] [address] [place] [address] Dr. Liana Ash Hemoglobin (Bld) [Mass/Vol] 13.1 g/dL Normal 12.0-16.0 [facility] Comment on above: Performed By: #### C BC #### [facility] [address] [place] [address] Dr. Liana Ash IG # 0.01 10e3/ul Normal 0.00-0.03 [facility] Comment on above: Performed By: #### C BC #### [facility] [address] [place] [address] Dr. Liana Ash IG % 0.2 % Normal 0.0-0.5 [facility] Comment on above: Performed By: #### C BC #### [facility] [address] [place] [address] Dr. Liana Ash LYMPH # 1.2 103/ul Normal 1.2-3.8 [facility] Comment on above: Performed By: #### C BC #### [facility] [address] [place] [address] Dr. Liana Ash Lymphocytes/100 WBC (Bld) 28.0 % Normal 20.5-60.0 [facility] Comment on above: Performed By: #### C BC #### [facility] [address] [place] [address] Dr. Liana Ash MANUAL DIFF REQ NO Normal [facility] Comment on above: Performed By: #### C BC #### [facility] [address] [place] [address] Dr. Liana Ash MCH (RBC) [Entitic mass] 30.8 pg Normal 26.7-34.0 [facility] Comment on above: Performed By: #### C BC #### [facility] [address] [place] [address] Dr. Liana Ash MCHC (RBC) [Mass/Vol] 34.0 g/dL Normal 29.9-35.2 [facility] Comment on above: Performed By: #### C BC #### [facility] [address] [place] [address] Dr. Liana Ash MCV (RBC) [Entitic vol] 90.4 fL Normal 81.0-99.0 [facility] Comment on above: Performed By: #### C BC #### [facility] [address] [place] [address] Dr. Liana Ash MONO # 0.4 103/ul Normal 0.3-0.8 [facility] Comment on above: Performed By: #### C BC #### [facility] [address] [place] [address] Dr. Liana Ash Monocytes/100 WBC (Bld) 8.7 % Normal 1.7-12.0 [facility] Comment on above: Performed By: #### C BC #### [facility] [address] [place] [address] Dr. Liana Ash NEUT # 2.6 103/ul Normal 1.4-6.5 [facility] Comment on above: Performed By: #### C BC #### [facility] [address] [place] [address] Dr. Liana Ash Neutrophils/100 WBC (Bld) 61.3 % Normal 43.0-75.0 [facility] Comment on above: Performed By: #### C BC #### [facility] [address] [place] [address] Dr. Liana Ash Platelet mean volume (Bld) [Entitic vol] 8.7 fL Critically low 9.5-13.5 [facility] Comment on above: Performed By: #### C BC #### [facility] [address] [place] [address] Dr. Liana Ash PLT 204 103/ul Normal 150-450 [facility] Comment on above: Performed By: #### C BC #### [facility] [address] [place] [address] Dr. Liana Ash RBC 4.26 106/ul Normal 4.20-5.40 [facility] Comment on above: Performed By: #### C BC #### [facility] [address] [place] [address] Dr. Liana Ash WBC 4.3 103/ul Normal 4.0-11.0 [facility] Comment on above: Performed By: #### C BC #### [facility] [address] [place] [address] Dr. Liana Ash CRPon 03-10-2023 CRP 0.9 mg/dL Normal <=1.0 [facility] Comment on above: Performed By: #### B MP, LIVER, TSH, CRP #### [facility] [address] [place] [address] Dr. Liana Ash LIVER PROFILEon 03-10-2023 Albumin [Mass/Vol] 3.8 g/dL Normal 3.4-5.0 [facility] Comment on above: Performed By: #### B MP, LIVER, TSH, CRP #### [facility] [address] [place] [address] Dr. Liana Ash Albumin/Globulin [Mass ratio] 0.9 {ratio} Normal [facility] Comment on above: Performed By: #### B MP, LIVER, TSH, CRP #### [facility] [address] [address] [address] Liana Ash ALP [Catalytic activity/Vol] 92 U/L Normal 46-116 [facility] Comment on above: Performed By: #### B MP, LIVER, TSH, CRP #### [facility] [address] [place] [address] Dr. Liana Ash ALT [Catalytic activity/Vol] 157 U/L Critically high 14-59 [facility] Comment on above: Performed By: #### B MP, LIVER, TSH, CRP #### [facility] [address] [place] [address] Dr. Liana Ash AST [Catalytic activity/Vol] 73 U/L Critically high 15-37 [facility] Comment on above: Performed By: #### B MP, LIVER, TSH, CRP #### [facility] [address] [place] [address] Dr. Liana Ash BILI, CONJUGATED 0.1 mg/dL Normal 0.0-0.2 [facility] Comment on above: Performed By: #### B MP, LIVER, TSH, CRP #### [facility] [address] [place] [address] Dr. Liana Ash Bilirubin [Mass/Vol] 0.4 mg/dL Normal 0.2-1.0 [facility] Comment on above: Performed By: #### B MP, LIVER, TSH, CRP #### [facility] [address] [place] [address] Dr. Liana Ash Globulin (S) [Mass/Vol] 4.0 g/dL Normal [facility] Comment on above: Performed By: #### B MP, LIVER, TSH, CRP #### [facility] [address] [place] [address] Dr. Liana Ash Protein [Mass/Vol] 7.8 g/dL Normal 6.4-8.2 [facility] Comment on above: Performed By: #### B MP, LIVER, TSH, CRP #### [facility] [address] [place] [address] Dr. Liana Ash PROF CHEM 8 (BAS METB)on Anion gap [Moles/Vol] 12.2 mmol/L Normal [facility] Comment on above: Performed By: #### B MP, LIVER, TSH, CRP #### [facility] [address] [address] [address] Liana Ash Calcium [Mass/Vol] 9.7 mg/dL Normal 8.5-10.1 [facility] Comment on above: Performed By: #### B MP, LIVER, TSH, CRP #### [facility] [address] [address] [address] Liana Ash Chloride [Moles/Vol] 104 mmol/L Normal 98-107 [facility] Comment on above: Performed By: #### B MP, LIVER, TSH, CRP #### [facility] [address] [place] [address] Dr. Liana Ash CO2 [Moles/Vol] 31.1 mmol/L Normal 21.0-32.0 [facility] Comment on above: Performed By: #### B MP, LIVER, TSH, CRP #### [facility] [address] [place] [address] Dr. Liana Ash Creatinine [Mass/Vol] 0.68 mg/dL Normal 0.55-1.02 [facility] Comment on above: Performed By: #### B MP, LIVER, TSH, CRP #### [facility] [address] [place] [address] Dr. Liana Ash EGFR-AF TANZANIAN >60 Normal >=60 [facility] Comment on above: Performed By: #### B MP, LIVER, TSH, CRP #### [facility] [address] [place] [address] Dr. Liana Ash EGFR-NON AF TANZANIAN >60 Normal >=60 [facility] Comment on above: Performed By: #### B MP, LIVER, TSH, CRP #### [facility] [address] [place] [address] Dr. Liana Ash Glucose [Mass/Vol] 102 mg/dL Normal 74-106 [facility] Comment on above: Performed By: #### B MP, LIVER, TSH, CRP #### [facility] [address] [address] [address] Liana Ash Potassium [Moles/Vol] 4.3 mmol/L Normal 3.5-5.1 [facility] Comment on above: Performed By: #### B MP, LIVER, TSH, CRP #### [facility] [address] [place] [address] Dr. Liana Ash Sodium [Moles/Vol] 143 mmol/L Normal 136-145 [facility] Comment on above: Performed By: #### B MP, LIVER, TSH, CRP #### [facility] [address] [place] [address] Dr. Liana Ash Urea nitrogen [Mass/Vol] 14.0 mg/dL Normal 7.0-18.0 [facility] Comment on above: Performed By: #### B MP, LIVER, TSH, CRP #### [facility] [address] [place] [address] Dr. Liana Ash Urea nitrogen/Creatinin e [Mass ratio] 20.6 mg/mg Normal [facility] Comment on above: Performed By: #### B MP, LIVER, TSH, CRP #### [facility] [address] [place] [address] Dr. Liana Ash SED RATE [facility] 2022 SED RATE 29 mm/hr Critically high <=20 [facility] Comment on above: Performed By: #### S EDR #### [facility] [address] [place] [address] Dr. Liana Ash TSHon 03-10-2023 TSH 1.164 uIU/mL Normal 0.358-3.740 [facility] Comment on above: Performed By: #### B MP, LIVER, TSH, CRP #### [facility] [address] [place] [address] Dr. Liana Ash Consultation Noteon 10-30-20 21 Consultation Note [id number]:[id number] Normal [facility] HIPS BILATERAL 2 VWS WITH PE LVISon 07-15-2018 HIPS BILATERAL 2 VWS WITH PELVIS [facility] Department of Radiology [address] [place] [phone] ======== Patient Name: RUBIA OCONNOR : 1975 Sex: F Age: Race: NA Pt. Location: [facility] Patient Status: D Ordered Date: 07/15/2018 5:05:00 PM Completed Date: 07/15/2018 05:18 PM Requesting Provider: MATT SYLVESTER Attending Provider: MATT SYLVESTER Report Copy To: UNKNOWN, PHYSICIAN Signs & Symptoms: M25.551 Pain in right hip I10 History: Lauren Comments: , eval for femoroacetabular impingment , Views (X-RAY, HIP): AP Hip, Frogleg Lateral Hip , eval for femoroacetabular impingment , Views (X-RAY, HIP): AP Hip, Frogleg Lateral Hip , , , Ordering Provider - MATT SYLVESTER MD , Exam: HIPS BILATERAL 2 VWS WITH PELVIS ======== HIPS BILATERAL 2 VWS WITH PELVIS 07/15/2018 5:18 PM EDT SIGNS AND SYMPTOMS: M25.551 Pain in right hip I10 TECHNOLOGIST COMMENTS: Bilateral hip pain x years. No known injury. QUESTION FOR THE RADIOLOGIST: , eval for femoroacetabular impingment , Views (X-RAY, HIP): AP Hip, Frogleg Lateral Hip , eval for femoroacetabular impingment , Views (X-RAY, HIP): AP Hip, Frogleg Lateral ...More In Sending System PROTOCOL: AP(PA) and Lateral views were obtained. COMPARISON: None FINDINGS: Soft tissues: No acute findings Bones: Normal alignment Joints: Intact IMPRESSION: 1. No bony abnormality 2. Cannot exclude femoral acetabular impingement Electronically signed by:Bang Vanessa. Transcribed by: [email or web address], User Resident: Electronically Signed by: BANG VANESSA @ 07/16/2018 01:25 PM Normal [facility] Comment on above: Order Comment: , amanda l for femoroacetabular impingment , Views (X-RAY, HIP): AP Hip, Frogleg Lateral Hip , eval for femoroacetabular impingment , Views (X-RAY, HIP): AP Hip, Frogleg Lateral Hip , , , Ordering Provider - MATT SYLVESTER MD , Encounters Encounter Date Encounter Type Care Provider Facility Start: 06-30-2024 End: 06-30-2024 ambulatory JALIL RAMIREZ Not Available Start: 04-27-2024 ambulatory GRAY DIAL JR [facility] Start: 03-10-2024 End: 03-10-2024 ambulatory GRAY PELAEZ Not Available Start: 03-04-2024 End: 03-04-2024 ambulatory SANTOSH FARLEY Not Available Start: 03-02-2024 End: 03-02-2024 ambulatory QUINN FIGUEROA Not Available Start: 02-20-2024 End: 02-20-2024 ambulatory QUINN FIGUEROA Not Available Start: 02-19-2024 End: 02-19-2024 ambulatory ROBERTA LEIVA Not Available Start: 02-17-2024 End: 02-17-2024 ambulatory RADHA PURVIS Not Available Start: 02-12-2024 End: 02-12-2024 ambulatory CECELIA NIEVES Not Available Start: 02-10-2024 End: 02-10-2024 ambulatory CECELIA NIEVES Not Available Start: 01-22-2024 End: 01-22-2024 ambulatory QUINN FIGUEROA Not Available Start: 01-08-2024 Refill Jalil Tompkins Work Phone: [facility] Comment on above: Cervical spondylosis without myelopathy (Primary Dx) Start: 01-02-2024 Bamboo flowsheet Santosh christianson MD Work Phone: [facility] Start: 01-02-2024 Bamboo flowsheet Santosh christianson MD Work Phone: [facility] Start: 01-02-2024 End: 01-02-2024 ambulatory SANTOSH FARLEY Not Available Start: 01-01-2024 Chart abstracting Santosh lester MD Work Phone: [facility] 210 Start: 12-31-2023 End: 12-31-2023 ambulatory JALIL RAMIREZ Not Available Start: 11-12-2023 End: 11-12-2023 ambulatory SANTOSH FARLEY Not Available Start: 10-28-2023 End: 10-28-2023 ambulatory SANTOSH FARLEY Not Available Start: 10-14-2023 End: 10-14-2023 ambulatory FLORECITA SANDRO Not Available Start: 03-22-2023 End: 03-23-[address] JALIL RAMIREZ Facility:[facility] Start: 03-10-2023 End: 03-11-[address] JALIL RAMIREZ Facility:[facility] Plan of Treatment Date Care Activity Detail Author Start: 06-30-2024 End: 06-30-2024 Patient encounter procedure 06/30/2024 7:15 AM EDT Office Visit [facility] [address] [place] [phone] Jalil Ramirez MD [address] [place] [phone] [facility] Start: 03-01-2024 End: 03-01-2024 Clinical Support 03/01/2024 8:20 AM EDT Clinical Support [facility] [address] [facility] [address] [place] [address] Santosh Farley MD [address] [facility] [address] [place] [address] [facility] Start: 01-02-2024 End: 01-02-2024 [facility] Comment on above: Arrived Start: 08-01-2023 Influenza vaccination Influenza Vacc ine (#1) [facility] Start: 2017 Screening for malign ant neoplasm of breast Mammogram [facility] Start: 1975 Screening for malign ant neoplasm of colon [facility] Immunizations Immunization Date Immunization Notes Care Provider Fa cility 08-10-2019 influenza virus vacc ine, unspecified formulation Santosh Farley MD Work Phone: [facility] Payers Date Payer Category Payer Unknown [employer] [id number] 2023-Present [address] [place] [address] [id number] 2023 Unknown [id number] 2023 Unknown [id number] 2023 Medicaid [id number] 1975 Unknown [id number] 2.840.1.172424.3.579.2.5 93 1975 Unknown [id number] 2.840.1.178703.3.579.2.5 93 1975 Unknown [id number] .840.1.297514.3.579.2.1 286 1975 Unknown [id number] 2.16840.1.995381.3.579.2.1 259 1975 Unknown [id number] 2.16840.1.995044.3.579.2.1 259 1975 Unknown [id number] 2.16840.1.438624.3.579.2.1 259 1975 Unknown [id number] 2.16840.1.649541.3.579.2.1 259 1975 Unknown [id number] 2.16.840.1.128279.3.579.2.1 259 1975 Unknown [id number] 2.16.840.1.933815.3.579.2.1 259 1975 Unknown [id number] 2.16.840.1.319312.3.579.2.1 259 1977 Unknown [id number] 2.16.840.1.697544.3.579.2.1 259 1975 Unknown [id number] 2.16.840.1.449333.3.579.2.1 259 1975 Unknown [id number] 2.16.840.1.239470.3.579.2.1 259 1977 Unknown [id number] 2.16.840.1.519994.3.579.2.1 259 1975 Unknown [id number] 2.16.840.1.123564.3.579.2.1 259 1975 Unknown [id number] 2.16.840.1.607440.3.579.2.1 259 1975 Unknown [id number] 2.16.840.1.205437.3.579.2.1 259 1975 Unknown [id number] 2.16.840.1.108458.3.579.2.1 259 1975 Unknown [id number] 2.16.840.1.627263.3.579.2.1 259 1959 Private Health Insurance [id number] Social History Date Type Detail Facility Start: 05-12-2023 Tobacco smoking stat [facility] Never smoked tobacco [facility] Start: 05-12-2023 Tobacco use and exposure Smoke less tobacco non-user [facility] Start: 01-01-2024 End: 01-02-2024 Alcohol intake Current drinker of alcohol (finding) [facility] Start: 12-31-2023 End: 01-02-2024 [facility] of [facility] function [facility] Start: 12-31-2023 End: 01-02-2024 Tobacco use panel [facility] Start: 06-11-2023 Alcohol Comment 6 or more drinks mon thly [facility] Start: 1975 Sex Assigned At Female [facility] Start: 06-13-2023 Gender identity Identifies as female gender (finding) [facility] Start: 06-13-2023 Sexual orientation Choose not to dis close [facility] Evaluation note Note Date & Type Note Facility Evaluation note Diagnosis Cervical spondylosis without myelopathy- Primary documented in this encounter [facility] Summary Purpose Family History No Family History Records FoundNo Family History Records FoundNo Family History Records FoundNo Family History Records FoundNo Family History Records Found Advance Directives No Advanced Directives Records FoundNo Advanced Directives Records FoundNo Advanced Directives Records FoundNo Advanced Directives Records FoundNo Advanced Directives Records Found Additional Source Comments INFORMATION SOURCE (unrecogn ized section and content) DATE CREATED AUTHOR 05/22/2019 [facility] DATE CREATED AUTHOR AUTHOR'S ORGANIZ ATION 10/31/2021 [facility] DATE CREATED AUTHOR AUTHOR'S ORGANIZ ATION 03/29/2023 [facility] DATE CREATED AUTHOR AUTHOR'S ORGANIZ ATION 05/01/2024 [facility] DATE CREATED AUTHOR AUTHOR'S ORGANIZ ATION 07/02/2024 [facility] EPIC Care Teams (unrecognized sec tion and content) Veneer Layer Relationship Specialty Start Date End Date Jalil Ramirez MD [address] [place] [phone] PCP - General Family Medicine 12/31/23 Veneer Layer Relationship Specialty Start Date End Date Jalil Ramirez MD [address] [place] [address] PCP - General Family Medicine 12/31/23 Reason for Visit (unrecogniz ed section and content) Reason Onset Date Comments Med Refill 01/08/2024 FOR RECORDS PERTAINING TO PATIENTS WHO ARE OR HAVE BEEN ENROLLED IN A CHEMICAL DEPENDENCY/SUBSTANCEABUSE PROGRAM, SOME INFORMATION MAY BE OMITTED. This clinical summary was aggregated from multiple sources. Caution should be exercised in using it in the provision of clinical care. This summary normalizes information from multiple sources, and as a consequence, information in this document may materially change the coding, format and clinical context of patient data. In addition, data may be omitted in some cases. CLINICAL DECISIONS SHOULD BE BASED ON THE PRIMARY CLINICAL RECORDS. [facility]. provides no warranty or guarantee of the accuracy or completeness of information in this document.
== END 2024-07-07 08:55 | disposition home or self-care (01) ==
LOC: MAMMO 08:54
PROVIDERS: PCP Family Medicine; Visit Provider Family Medicine
DX: M85.88 Other specified disorders of bone density and structure, other site (principal); Z12.31 Encounter for screening mammogram for malignant neoplasm of breast; Z80.3 Family history of malignant neoplasm of breast; M85.80 Other specified disorders of bone density and structure, unspecified site
CPT/HCPCS: 77063; 77067; 77080

== ENCOUNTER 2024-07-30 08:53 | Outpatient (OUT) | payer OTHER, SELFPAY ==
--- NOTE | 2024-07-30 08:56 | MM_ITS ---
Patient Name: RUBIA FUNG MR#: [id number] : 1975 Exam Date: 07/30/2024 Ordering Doctor: DR Jalil Live . RADIOLOGY REPORT PROCEDURE: MM DIAGNOSTIC MAMMO UNILAT RT, 07/30/2024, 08:54 US BREAST RT LIMITED, 07/30/2024, 09:06 COMPARISON: MM TOMOSYNTHESIS SCREENING BI, 07/07/2024. INDICATIONS: Abnormal Mammogram Right Breast Calculator Name NCI Breast Cancer Risk Assessment Tool 5 Year Breast Cancer Risk 1.10% Lifetime Breast Cancer Risk 11.30% Personal Breast Cancer No Personal Ovarian Cancer No Treatments None Family Cancers Grandmother-maternal with breast cancer at age 80. LOCATION: [facility] BREAST COMPOSITION: There are scattered areas of fibroglandular density. FINDINGS: DIAGNOSTIC CATEGORY 4--SUSPICIOUS FOR MALIGNANCY. FINDING DOES NOT EXHIBIT CLASSIC FINDINGS OF BREAST CANCER: RIGHT BREAST: Spot magnification views demonstrate persistence of a 1.7 cm oval thin-walled structure with internal soft tissue versus debris. Ultrasound evaluation demonstrates a 1.7 x 1.3 x 1.1 cm thinly encapsulated cystic appearing structure with internal soft tissue; neoplasm versus clotted blood products. Ultrasound-guided tissue sampling is recommended. RECOMMENDATIONS: ULTRASOUND-GUIDED CORE BIOPSY: RIGHT BREAST PLEASE NOTE: A NORMAL MAMMOGRAM DOES NOT EXCLUDE THE POSSIBILITY OF BREAST CANCER. A CLINICALLY SUSPICIOUS PALPABLE LUMP SHOULD BE BIOPSIED. Dictated by: Chun Haynes M.D. on 08/03/2024 at 14:07 Approved by: Chun Haynes M.D. on 08/03/2024 at 14:16
--- OUTSIDE RECORDS SUMMARY | 2024-07-30 08:59 | XMS_ITS | CCD ---
Author Organization [facility] Care Team Providers Care Network Relations Consultant Name Role Phone ASHLEY, DR JALIL Valderrama Admitting Unavailable NADERERosendo, DR JALIL Valderrama Primary Care Unavailable LIVIAERERosendo, DR JALIL Valderrama Consulting Unavailable ASHLEY, DR JALIL Valderrama Attending Unavailable ASHLEY, DR JALIL Valderrama Admitting Unavailable RIVES, DR LUCA Bruner Consulting Unavailable NADERERosendo, DR JALIL Valderrama Primary Care Unavailable NADERERosendo, DR JALIL Valderrama Attending Unavailable ASHLEY, DR JALIL Valderrama Consulting Unavailable Jalil Ramirez MD Primary Care Provider [phone] GRAY DIAL JR Referring Unavailabl e LIVIAEREJALIL Robbins Primary Care Unavailable JALIL RAMIREZ Attending Unavailable SANTOSH FARLEY Attending Unavailable QUINN FIGUEROA Attending Unavailable QUINN FIGUERAO Referring Unavailable CECELIA NIEVES Attending Unavailable QUINN FIGUEROA Referring Unavailable CECELIA NIEVES Attending Unavailable QUINN FIGUEROA Referring Unavailable RADHA PURVIS Attending Unavailable QUINN FIGUEROA Referring Unavailable ROBERTA LEIVA Attending Unavailable QUINN FIGUEROA Referring Unavailable QUINN FIGUEROA Attending Unavailable QUINN FIGUEROA Referring Unavailable SANTOSH FARLEY Attending Unavailable JR. DIAL GEORGE C Attending Unavaila SANTOSH Xiao Referring Unavailable ASHLEY, JALIL Attending Unavailable NATHANAEL BRITTON Attending Unavailable KELSEY REAGAN Referring Unavailable ASHLEY, JALIL Attending Unavailable SANTOSH FARLEY Attending Unavailable FLORECITA JO Attending Unavailable QUINN FIGUEROA Referring Unavailable Allergies Allergy Classification Reported Allergen(s) Allergy Type Date of Onset Reaction(s) Facility (1 source) Acetaminophen / oxyCODONE Drug Allergy 1 [facility] Repository (1 source) Amoxicillin Drug Allergy [facility] Rep[facility] (1 source) Amoxicillin / Clavulanate Drug Allergy 6 [facility] Rep[facility] (1 source) Azithromycin Drug Allergy 5 [facility] Rep[facility] (1 source) Sulfamethoxazole / Trimethoprim Drug Allergy 6 [facility] Repository (5 sources) Azithromycin; Translations: [AZITHROMYCIN] [...] tunnel syndrome, bilateral upper limbs] Onset: 09-22-2023 09-22-2023 Chronic Other nervous system disorders (4 sources) [...] of the pelvis and hip(s). With small qztig-ks-sttp imaging of the right hip. Comparison: None [...] LUCA JUAN Date: 2023-03-22 13:58 Normal [facility] KIKE by IFAon 03-12-2023 Antinuclear Antibodies, IFA Negative Normal [facility] Comment on above: Result Comment: Nega tive <1:80 Borderline 1:80 Positive >1:80 ICAP nomenclature: AC-0 For more information about Hep-2 cell patterns use ANApatterns.org, the official website for the International Consensus on Antinuclear Antibody (KIKE) Patterns (ICAP). Performed By: #### A NAIFA #### [facility] [address] [place] [address] Dr. Liana Ash RHEUMATOID FACTORon 03-11-20 23 RA Latex Turbid. <10.0 Normal <14.0 [facility] Comment on above: Performed By: #### R F #### [facility] [address] [address] [address] Liana Ash CBC AUTO DIFFon 03-10-2023 BASO # 0.0 103/ul Normal 0.0-0.1 [facility] Comment on above: Performed By: #### C BC #### [facility] [address] [address] [address] Liana Ash Basophils/100 WBC (Bld) 0.2 % Normal 0.2-2.0 [facility] Comment on above: Performed By: #### C BC #### [facility] [address] [place] [address] Dr. Liana Ash EO # 0.1 103/ul Normal 0.0-0.7 [facility] Comment on above: Performed By: #### C BC #### [facility] [address] [place] [address] Dr. Liana Ash Eosinophils/100 WBC (Bld) 1.6 % Normal 0.9-7.0 [facility] Comment on above: Performed By: #### C BC #### [facility] [address] [place] [address] Dr. Liana Ash Erythrocyte distribution width (RBC) [Ratio] 11.8 % Normal 11.0-15.0 [facility] Comment on above: Performed By: #### C BC #### [facility] [address] [place] [address] Dr. Liana Ash Hematocrit (Bld) [Volume fraction] 38.5 % Normal 36.0-48.0 [facility] Comment on above: Performed By: #### C BC #### [facility] [address] [place] [address] Dr. Liana Ash Hemoglobin (Bld) [Mass/Vol] 13.1 g/dL Normal 12.0-16.0 [facility] Comment on above: Performed By: #### C BC #### [facility] [address] [place] [address] Dr. Liana Ash IG # 0.01 10e3/ul Normal 0.00-0.03 [facility] Comment on above: Performed By: #### C BC #### [facility] [address] [place] [address] Dr. Liana Ash IG % 0.2 % Normal 0.0-0.5 [facility] Comment on above: Performed By: #### C BC #### [facility] [address] [place] [address] Dr. Liana Ash LYMPH # 1.2 103/ul Normal 1.2-3.8 [facility] Comment on above: Performed By: #### C BC #### [facility] [address] [place] [address] Dr. Liana Ash Lymphocytes/100 WBC (Bld) 28.0 % Normal 20.5-60.0 [facility] Comment on above: Performed By: #### C BC #### [facility] [address] [place] [address] Dr. Liana Ash MANUAL DIFF REQ NO Normal [facility] Comment on above: Performed By: #### C BC #### [facility] [address] [place] [address] Dr. Liana Ash MCH (RBC) [Entitic mass] 30.8 pg Normal 26.7-34.0 [facility] Comment on above: Performed By: #### C BC #### [facility] [address] [place] [address] Dr. Liana Ash MCHC (RBC) [Mass/Vol] 34.0 g/dL Normal 29.9-35.2 [facility] Comment on above: Performed By: #### C BC #### [facility] [address] [place] [address] Dr. Liana Ash MCV (RBC) [Entitic vol] 90.4 fL Normal 81.0-99.0 [facility] Comment on above: Performed By: #### C BC #### [facility] [address] [place] [address] Dr. Liana Ash MONO # 0.4 103/ul Normal 0.3-0.8 [facility] Comment on above: Performed By: #### C BC #### [facility] [address] [place] [address] Dr. Liana Ash Monocytes/100 WBC (Bld) 8.7 % Normal 1.7-12.0 [facility] Comment on above: Performed By: #### C BC #### [facility] [address] [place] [address] Dr. Liana Ash NEUT # 2.6 103/ul Normal 1.4-6.5 [facility] Comment on above: Performed By: #### C BC #### [facility] [address] [place] [address] Dr. Liana Ash Neutrophils/100 WBC (Bld) 61.3 % Normal 43.0-75.0 [facility] Comment on above: Performed By: #### C BC #### [facility] [address] [place] [address] Dr. Liana Ash Platelet mean volume (Bld) [Entitic vol] 8.7 fL Critically low 9.5-13.5 [facility] Comment on above: Performed By: #### C BC #### [facility] [address] [place] [address] Dr. Liana Ash PLT 204 103/ul Normal 150-450 [facility] Comment on above: Performed By: #### C BC #### [facility] [address] [place] [address] Dr. Liana Ash RBC 4.26 106/ul Normal 4.20-5.40 [facility] Comment on above: Performed By: #### C BC #### [facility] [address] [place] [address] Dr. Liana Ahs WBC 4.3 103/ul Normal 4.0-11.0 [facility] Comment on above: Performed By: #### C BC #### [facility] [address] [place] [address] Dr. Liana Ash CRPon 03-10-2023 CRP 0.9 mg/dL Normal <=1.0 [facility] Comment on above: Performed By: #### B MP, LIVER, TSH, CRP #### [facility] [address] [place] [address] Dr. Liana Ash LIVER PROFILEon 03-10-2023 Albumin [Mass/Vol] 3.8 g/dL Normal 3.4-5.0 [facility] Comment on above: Performed By: #### B MP, LIVER, TSH, CRP #### [facility] [address] [place] [address] Dr. Liana Ash Albumin/Globulin [Mass ratio] 0.9 {ratio} Normal [facility] Comment on above: Performed By: #### B MP, LIVER, TSH, CRP #### [facility] [address] [place] [address] Dr. Liana Ash ALP [Catalytic activity/Vol] 92 U/L Normal 46-116 [facility] Comment on above: Performed By: #### B MP, LIVER, TSH, CRP #### [facility] [address] [place] [address] Dr. Liana Ash ALT [Catalytic activity/Vol] 157 U/L Critically high 14-59 [facility] Comment on above: Performed By: #### B MP, LIVER, TSH, CRP #### [facility] [address] [place] [address] Dr. Liana Ash AST [Catalytic activity/Vol] 73 U/L Critically high 15-37 [facility] Comment on above: Performed By: #### B MP, LIVER, TSH, CRP #### [facility] [address] [place] [address] Dr. Liana Ash BILI, CONJUGATED 0.1 mg/dL Normal 0.0-0.2 [facility] Comment on above: Performed By: #### B MP, LIVER, TSH, CRP #### [facility] [address] [place] [address] Dr. Liana Ash Bilirubin [Mass/Vol] 0.4 mg/dL Normal 0.2-1.0 [facility] Comment on above: Performed By: #### B MP, LIVER, TSH, CRP #### [facility] [address] [place] [address] Dr. Liana Ash Globulin (S) [Mass/Vol] 4.0 g/dL Normal [facility] Comment on above: Performed By: #### B MP, LIVER, TSH, CRP #### [facility] [address] [place] [address] Dr. Liana Ash Protein [Mass/Vol] 7.8 g/dL Normal 6.4-8.2 [facility] Comment on above: Performed By: #### B MP, LIVER, TSH, CRP #### [facility] [address] [place] [address] Dr. Liana Ash PROF CHEM 8 (BAS METB)on Anion gap [Moles/Vol] 12.2 mmol/L Normal [facility] Comment on above: Performed By: #### B MP, LIVER, TSH, CRP #### [facility] [address] [address] [address] Liana Ash Calcium [Mass/Vol] 9.7 mg/dL Normal 8.5-10.1 [facility] Comment on above: Performed By: #### B MP, LIVER, TSH, CRP #### [facility] [address] [address] [address] Liana Ash Chloride [Moles/Vol] 104 mmol/L Normal 98-107 [facility] Comment on above: Performed By: #### B MP, LIVER, TSH, CRP #### [facility] [address] [address] [address] Liana Ash CO2 [Moles/Vol] 31.1 mmol/L Normal 21.0-32.0 [facility] Comment on above: Performed By: #### B MP, LIVER, TSH, CRP #### [facility] [address] [address] [address] Liana Ash Creatinine [Mass/Vol] 0.68 mg/dL Normal 0.55-1.02 [facility] Comment on above: Performed By: #### B MP, LIVER, TSH, CRP #### [facility] [address] [address] [address] Liana Ash EGFR-AF TURKISH >60 Normal >=60 [facility] Comment on above: Performed By: #### B MP, LIVER, TSH, CRP #### [facility] [address] [address] [address] Liana Ash EGFR-NON AF TURKISH >60 Normal >=60 [facility] Comment on above: Performed By: #### B MP, LIVER, TSH, CRP #### [facility] [address] [address] [address] Liana Ash Glucose [Mass/Vol] 102 mg/dL Normal 74-106 [facility] Comment on above: Performed By: #### B MP, LIVER, TSH, CRP #### [facility] [address] [address] [address] Liana Ash Potassium [Moles/Vol] 4.3 mmol/L Normal 3.5-5.1 [facility] Comment on above: Performed By: #### B MP, LIVER, TSH, CRP #### [facility] [address] [place] [address] Dr. Liana Ash Sodium [Moles/Vol] 143 mmol/L Normal 136-145 [facility] Comment on above: Performed By: #### B MP, LIVER, TSH, CRP #### [facility] [address] [place] [address] Dr. Liana Ash Urea nitrogen [Mass/Vol] 14.0 mg/dL Normal 7.0-18.0 [facility] Comment on above: Performed By: #### B MP, LIVER, TSH, CRP #### [facility] [address] [place] [address] Dr. Liana Ash Urea nitrogen/Creatinin e [Mass ratio] 20.6 mg/mg Normal [facility] Comment on above: Performed By: #### B MP, LIVER, TSH, CRP #### [facility] [address] [place] [address] Dr. Liana Ash [facility] mm/hr Critically high <=20 [facility] Comment on above: Performed By: #### S EDR #### [facility] [address] [place] [address] Dr. Liana Ash TSHon 03-10-2023 TSH 1.164 uIU/mL Normal 0.358-3.740 [facility] Comment on above: Performed By: #### B MP, LIVER, TSH, CRP #### [facility] [address] [place] [address] Dr. Liana Ash Consultation Noteon 10-30-20 21 Consultation Note [id number] Normal [facility] HIPS BILATERAL 2 VWS WITH PE LVISon 07-15-2018 HIPS BILATERAL 2 VWS WITH PELVIS [facility] Department of Radiology [address] [place] [address] ======== Patient Name: RUBIA OCONNOR : 1975 Sex: F Age: Race: NA Pt. 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 , Views (X-RAY, HIP): AP Hip, Frogleg Lateral Hip , , , Ordering Provider - MATT SYLVESTER MD , Encounters Encounter Date Encounter Type Care Provider Facility Start: 07-28-2024 End: 07-28-2024 ambulatory JALIL RAMIREZ Not Available Start: 07-27-2024 End: 07-27-2024 ambulatory NATHANAEL BRITTON Not Available Start: 06-30-2024 End: 06-30-2024 ambulatory JALIL RAMIREZ Not Available Start: 04-27-2024 ambulatory GRAY DIAL JR [facility] Start: 03-10-2024 End: 03-10-2024 ambulatory GRAY PELAEZ [...] ambulatory QUINN FIGUEROA Not Available Start: 01-08-2024 Reflino Tompkins Work Phone: [facility] Comment on above: Cervical spondylosis without myelopathy (Primary Dx) Start: 01-02-2024 Bamboo flowsheet Santosh christianson MD Work Phone: [facility] Start: 01-02-2024 Bamboo flowsheet Santosh christianson MD Work Phone: [facility] Start: 01-02-2024 End: 01-02-2024 ambulatory SANTOSH FARLEY Not Available Start: 01-01-2024 Chart abstracting Santosh lester MD Work Phone: [facility] Start: 12-31-2023 End: 12-31-2023 ambulatory [...] [facility] [address] [place] [id number] Jalil Ramirez MD [address] [place] [id number] [facility] Start: 03-01-2024 End: 03-01-2024 Clinical Support 03/01/2024 8:20 AM EDT Clinical Support [facility] [address] [facility] [address] [place] [address] Santosh Farley MD [address] [facility] [address] [place] [address] [place] [address] [facility] Start: 01-02-2024 End: 01-02-2024 Clinical Support [facility] Comment on above: Arrived Start: 08-01-2023 Influenza vaccination Influenza Vacc ine (#1) [facility] Start: 2017 Screening for malign ant neoplasm of breast Mammogram [facility] Start: 1975 Screening for malign ant neoplasm of colon [facility] Immunizations Immunization Date Immunization Notes Care Provider Fa cility 08-10-2019 influenza virus vacc ine, unspecified formulation Santosh Farley MD Work Phone: [facility] Healthcare Payers Date Payer Category Payer Unknown [employer] [id number] 2023-Present [address] [place] [address] [id number] 2023 Unknown [id number] 2023 Unknown [id number] 2023 Medicaid [id number] 1975 Unknown [id number] 2..840.1.068832.3.579.2.5 93 1975 Unknown [id number] 2..840.1.766620.3.579.2.5 93 1975 Unknown [id number] 2.16.840.1.811921.3.579.2.1 286 1975 Unknown [id number] 2.16.840.1.519384.3.579.2.1 259 1975 Unknown [id number] 2.16.840.1.934032.3.579.2.1 259 1975 Unknown [id number] 2.16.840.1.046759.3.579.2.1 259 1975 Unknown [id number] 2.16.840.1.891576.3.579.2.1 259 1975 Unknown [id number] 2.16.840.1.872520.3.579.2.1 259 1977 Unknown [id number] 2.16.840.1.084917.3.579.2.1 259 1977 Unknown [id number] 2.16.840.1.531673.3.579.2.1 259 1977 Unknown [id number] 2.16.840.1.526606.3.579.2.1 259 1977 Unknown [id number] 2.16.840.1.768790.3.579.2.1 259 1977 Unknown [id number] 2.16.840.1.952393.3.579.2.1 259 1977 Unknown [id number] 2.16.840.1.729737.3.579.2.1 259 1977 Unknown [id number] 2.16.840.1.844901.3.579.2.1 259 1977 Unknown [id number] 2.16.840.1.023125.3.579.2.1 259 1977 Unknown [id number] 2.16.840.1.784581.3.579.2.1 259 1977 Unknown [id number] 2.16.840.1.205992.3.579.2.1 259 1977 Unknown [id number] 2.16.840.1.154978.3.579.2.1 259 1977 Unknown [id number] 2.16.840.1.240628.3.579.2.1 259 1977 Unknown [id number] 2.16.840.1.377418.3.579.2.1 259 1959 Private Health Insurance [id number] Social History Date Type Detail Facility Start: 05-12-2023 Tobacco smoking stat us NHIS Never smoked tobacco [facility] Start: 05-12-2023 Tobacco use and exposure Smoke less tobacco non-user [facility] Start: 01-01-2024 End: 01-02-2024 Alcohol intake [...] section and content) DATE CREATED AUTHOR 05/22/2019 [facility] DATE CREATED AUTHOR AUTHOR'S ORGANIZ ATION 10/31/2021 [facility] DATE CREATED AUTHOR AUTHOR'S ORGANIZ ATION 03/29/2023 [facility] DATE CREATED AUTHOR AUTHOR'S ORGANIZ ATION 05/01/2024 [facility] DATE CREATED AUTHOR AUTHOR'S ORGANIZ ATION 07/29/2024 [facility] [employer] Care Teams (unrecognized sec tion and content) Network Relations Consultant Relationship Specialty Start Date End Date Jalil Ramirez MD [address] [place] [address] PCP - General Family Medicine 12/31/23 Network Relations Consultant Relationship Specialty Start Date End Date Jalil Ramirez MD [address] [place] [address] PCP - General Family Medicine 12/31/23 Reason [...] BE BASED ON THE PRIMARY CLINICAL RECORDS. [facility]. provides no warranty or guarantee of the accuracy or completeness of information in this document.
== END 2024-07-30 08:54 | disposition home or self-care (01) ==
LOC: MAMMO 08:53
PROVIDERS: PCP Family Medicine; Visit Provider Family Medicine
DX: R92.8 Other abnormal and inconclusive findings on diagnostic imaging of breast (principal); Z80.3 Family history of malignant neoplasm of breast
CPT/HCPCS: 76642; 77065

== ENCOUNTER 2024-08-16 09:44 | Day surgery (SDC) | payer OTHER, SELFPAY ==
--- NOTE | 2024-08-16 09:48 | US_ITS ---
[address] [address] Patient Name: RUBIA FUNG MRN: [id number] date: 1975 Sex: F Assigned Patient Location: US Current Patient Location: US Accession/Order Number: [id number] Exam Date: 08/16/2024 09:50 Report Date: 08/16/2024 11:05 At the request of: DEREK RAMIREZ Procedure: US breast vac bx w/ clip RT EXAMINATION: US breast vac bx w/ clip RT HISTORY: Right Breast Lesion COMPARISON: No relevant comparison available. TECHNIQUE: After obtaining informed consent, an ultrasound-guided biopsy was performed in the usual sterile manner. FINDINGS: IMAGING: Ultrasound BIOPSY NEEDLE: 13-gauge vacuum-assisted core needle SPECIMEN TYPE, #, LOCATION: 5 core samples, 7:00 right breast mass MEDICATION: 3 cc 1% buffered lidocaine without epinephrine superficial. 7 cc 1% lidocaine with epinephrine deep COMPLICATIONS: None. LABORATORY: Pending OTHER: Technically successful deployment of a biopsy clip. US/US breast vac bx w/ clip RT IMPRESSION: Uneventful ultrasound guided biopsy. The patient was instructed to obtain follow up care and biopsy results from the referring physician. Electronically authenticated by: LUCA JUAN Date: 08/16/2024 11:05
--- NOTE | 2024-08-16 09:50 | MM_ITS ---
Patient Name: RUBIA FUNG MR#: [id number] : 1975 Exam Date: 08/16/2024 Ordering Doctor: DR Jalil Live . RADIOLOGY REPORT PROCEDURE: MM POST BIOPSY RT COMPARISON: MM DIAGNOSTIC MAMMO UNILAT RT, 07/30/2024. INDICATIONS: Right Breast Lesion R92.8 BREAST COMPOSITION: FINDINGS: Post-Procedure Mammogram for Marker Placement BIOPSY MARKER: A metallic marker has been placed in the targeted location within the upper outer quadrant of the right breast. BREAST FINDINGS: Previous identified mass is no longer present. Some postprocedural changes Dictated by: Manny Sarmiento MD on 08/16/2024 at 15:59 Approved by: Manny Sarmiento MD on 08/16/2024 at 16:00
[2024-08-16 09:55] VITALS: BP 105/63; PULSE 97; O2SAT 98
--- OUTSIDE RECORDS SUMMARY | 2024-08-16 10:02 | XMS_ITS | CCD ---
Author Organization [facility] Care Team Providers Care Finish Saw Operator Name Role Phone ASHLEY, DR JALIL Valderrama Admitting Unavailable NADERER, DR JALIL Valderrama Primary Care Unavailable NADERERosendo, DR JALIL Valderrama Consulting Unavailable NADERERosendo, DR JALIL Valderrama Attending Unavailable NADERER, DR JALIL Valderrama Admitting Unavailable RUFE, DR LUCA Bruner Consulting Unavailable NADERER, DR JALIL Valderrama Primary Care Unavailable NADERER, DR JALIL Valderrama Attending Unavailable ASHLEY, DR JALIL Valderrama Consulting Unavailable Jalil Ramirez MD Primary Care Provider [phone] GRAY DIAL JR Referring Unavailabl e NADERER, JALIL Primary Care Unavailable ASHLEY, JALIL Attending Unavailable [...] C Attending Unavaila SANTOSH Xiao Referring Unavailable NADERERosendo, JALIL Attending Unavailable NATHANAEL BRITTON Attending Unavailable KELSEY REAGAN Referring Unavailable NADERER, JALIL Attending Unavailable ROBERTA LEIVA Attending Unavailable KELSEY REAGAN Referring Unavailable NATHANAEL BRITTON Attending Unavailable KELSEY REAGAN Referring Unavailable FLORECITA JO Attending Unavailable KELSEY REAGAN Referring Unavailable ROBERTA LEIVA Attending Unavailable KELSEY REAGAN Referring Unavailable FLORECITA JO Attending Unavailable KELSEY REAGAN Referring Unavailable FLORECITA JO Attending Unavailable KELSEY REAGAN Referring Unavailable SANTOSH FARLEY Attending Unavailable FLORECITA JO Attending Unavailable QUINN FIGUEROA Referring Unavailable Allergies Allergy Classification Reported Allergen(s) Allergy Type Date of Onset Reaction(s) Facility (1 source) Acetaminophen / oxyCODONE Drug Allergy 1 [facility] (1 source) Amoxicillin Drug Allergy [facility] (1 source) Amoxicillin / Clavulanate Drug Allergy 6 [facility] (1 source) Azithromycin Drug Allergy 5 [facility] (1 source) Sulfamethoxazole / Trimethoprim Drug Allergy 6 [facility] (5 sources) Azithromycin; Translations: [AZITHROMYCIN] [...] of the pelvis and hip(s). With small [id number] imaging of the right hip. Comparison: None [...] LUCA JUAN Date: 2023-03-22 13:58 Normal [facility] KIKE by IFAon 03-12-2023 Antinuclear Antibodies, IFA Negative Normal [facility] Comment on above: Result Comment: Nega tive <1:80 Borderline 1:80 Positive >1:80 ICAP nomenclature: AC-0 For more information about Hep-2 cell patterns use ANApatterns.org, the official website for the International Consensus on Antinuclear Antibody (KIKE) Patterns (ICAP). Performed By: #### A NAIFJannie #### [facility] [address] [place] [address] Dr. Liana Ash RHEUMATOID FACTORon 03-11-20 RA Latex Turbid. <10.0 Normal <14.0 [facility] Comment on above: Performed By: #### R F #### [facility] [address] [place] [address] Dr. Liana Ash CBC AUTO DIFFon 03-10-2023 BASO # 0.0 103/ul Normal 0.0-0.1 [facility] Comment on above: Performed By: #### C BC #### [facility] [address] [place] [address] Dr. Liana Ash Basophils/100 WBC (Bld) 0.2 % Normal 0.2-2.0 [facility] Comment on above: Performed By: #### C BC #### [facility] [address] [place] [address] Dr. Liana Ash EO # 0.1 103/ul Normal 0.0-0.7 [facility] Comment on above: Performed By: #### C BC #### [facility] [address] [place] [address] Dr. Liana Ash Eosinophils/100 WBC (Bld) 1.6 % Normal 0.9-7.0 [facility] Comment on above: Performed By: #### C BC #### [facility] [address] [place] [address] Dr. Liana Ash Erythrocyte distribution width (RBC) [Ratio] 11.8 % Normal 11.0-15.0 [facility] Comment on above: Performed By: #### C BC #### [facility] [address] [place] [address] Dr. Liana Ash Hematocrit (Bld) [Volume fraction] 38.5 % Normal 36.0-48.0 [facility] Comment on above: Performed By: #### C BC #### [facility] [address] [place] [address] Dr. Liana Ash Hemoglobin (Bld) [Mass/Vol] 13.1 g/dL Normal 12.0-16.0 [facility] Comment on above: Performed By: #### C BC #### [facility] [address] [place] [address] Dr. Liana Ash IG # 0.01 10e3/ul Normal 0.00-0.03 [facility] Comment on above: Performed By: #### C BC #### [facility] [address] [place] [address] Dr. Liana Ash IG % 0.2 % Normal 0.0-0.5 [facility] Comment on above: Performed By: #### C BC #### [facility] [address] [place] [address] Dr. Liana Ash LYMPH # 1.2 103/ul Normal 1.2-3.8 [facility] Comment on above: Performed By: #### C BC #### [facility] [address] [place] [address] Dr. Liana Ash Lymphocytes/100 WBC (Bld) 28.0 % Normal 20.5-60.0 [facility] Comment on above: Performed By: #### C BC #### [facility] [address] [place] [address] Dr. Liana Ash MANUAL DIFF REQ NO Normal [facility] Comment on above: Performed By: #### C BC #### [facility] [address] [place] [address] Dr. Liana Ash MCH (RBC) [Entitic mass] 30.8 pg Normal 26.7-34.0 [facility] Comment on above: Performed By: #### C BC #### [facility] [address] [place] [address] Dr. Liana Ash MCHC (RBC) [Mass/Vol] 34.0 g/dL Normal 29.9-35.2 [facility] Comment on above: Performed By: #### C BC #### [facility] [address] [place] [address] Dr. Liana Ash MCV (RBC) [Entitic vol] 90.4 fL Normal 81.0-99.0 [facility] Comment on above: Performed By: #### C BC #### [facility] [address] [place] [address] Dr. Liana Ash MONO # 0.4 103/ul Normal 0.3-0.8 [facility] Comment on above: Performed By: #### C BC #### [facility] [address] [place] [address] Dr. Liana Ash Monocytes/100 WBC (Bld) 8.7 % Normal 1.7-12.0 [facility] Comment on above: Performed By: #### C BC #### [facility] [address] [place] [address] Dr. Liana Ash NEUT # 2.6 103/ul Normal 1.4-6.5 [facility] Comment on above: Performed By: #### C BC #### [facility] [address] [place] [address] Dr. Liana Ash Neutrophils/100 WBC (Bld) 61.3 % Normal 43.0-75.0 [facility] Comment on above: Performed By: #### C BC #### [facility] [address] [place] [address] Dr. Liana Ash Platelet mean volume (Bld) [Entitic vol] 8.7 fL Critically low 9.5-13.5 [facility] Comment on above: Performed By: #### C BC #### [facility] [address] [place] [address] Dr. Liana Ash PLT 204 103/ul Normal 150-450 [facility] Comment on above: Performed By: #### C BC #### [facility] [address] [place] [address] Dr. Liana Ash RBC 4.26 106/ul Normal 4.20-5.40 [facility] Comment on above: Performed By: #### C BC #### [facility] [address] [place] [address] Dr. Liana Ash WBC 4.3 103/ul Normal 4.0-11.0 [facility] Comment on above: Performed By: #### C BC #### [facility] [address] [place] [address] Dr. Liana Ash CRPon 03-10-2023 CRP 0.9 mg/dL Normal <=1.0 [facility] Comment on above: Performed By: #### B MP, LIVER, TSH, CRP #### [facility] [address] [place] [address] Dr. Liana Ash LIVER PROFILEon 03-10-2023 Albumin [Mass/Vol] 3.8 g/dL Normal 3.4-5.0 [facility] Comment on above: Performed By: #### B MP, LIVER, TSH, CRP #### [facility] [address] [address] [address] Liana Ash Albumin/Globulin [Mass ratio] 0.9 {ratio} Normal [facility] Comment on above: Performed By: #### B MP, LIVER, TSH, CRP #### [facility] [address] [address] [address] Liana Ash ALP [Catalytic activity/Vol] 92 U/L Normal 46-116 [facility] Comment on above: Performed By: #### B MP, LIVER, TSH, CRP #### [facility] [address] [place] [address] Dr. Liana Ash ALT [Catalytic activity/Vol] 157 U/L Critically high 14-59 [facility] Comment on above: Performed By: #### B MP, LIVER, TSH, CRP #### [facility] [address] [place] [address] Dr. Liana Ash AST [Catalytic activity/Vol] 73 U/L Critically high 15-37 [facility] Comment on above: Performed By: #### B MP, LIVER, TSH, CRP #### [facility] [address] [place] [address] Dr. Liana Ash BILI, CONJUGATED 0.1 mg/dL Normal 0.0-0.2 [facility] Comment on above: Performed By: #### B MP, LIVER, TSH, CRP #### [facility] [address] [place] [address] Dr. Liana Ash Bilirubin [Mass/Vol] 0.4 mg/dL Normal 0.2-1.0 [facility] Comment on above: Performed By: #### B MP, LIVER, TSH, CRP #### [facility] [address] [place] [address] Dr. Liana Ash Globulin (S) [Mass/Vol] 4.0 g/dL Normal [facility] Comment on above: Performed By: #### B MP, LIVER, TSH, CRP #### [facility] [address] [address] [address] Liana Ash Protein [Mass/Vol] 7.8 g/dL Normal 6.4-8.2 [facility] Comment on above: Performed By: #### B MP, LIVER, TSH, CRP #### [facility] [address] [place] [address] Dr. Liana Ash PROF CHEM 8 (BAS METB)on Anion gap [Moles/Vol] 12.2 mmol/L Normal [facility] Comment on above: Performed By: #### B MP, LIVER, TSH, CRP #### [facility] [address] [place] [address] Dr. Liana Ash Calcium [Mass/Vol] 9.7 mg/dL Normal 8.5-10.1 [facility] Comment on above: Performed By: #### B MP, LIVER, TSH, CRP #### [facility] [address] [place] [address] Dr. Liana Ash Chloride [Moles/Vol] 104 mmol/L Normal 98-107 [facility] Comment on above: Performed By: #### B MP, LIVER, TSH, CRP #### [facility] [address] [place] [address] Dr. Liana Ash CO2 [Moles/Vol] 31.1 mmol/L Normal 21.0-32.0 [facility] Comment on above: Performed By: #### B MP, LIVER, TSH, CRP #### [facility] [address] [place] [address] Dr. Liana Ash Creatinine [Mass/Vol] 0.68 mg/dL Normal 0.55-1.02 [facility] Comment on above: Performed By: #### B MP, LIVER, TSH, CRP #### [facility] [address] [place] [address] Dr. Liana Ash EGFR-AF MEXICAN >60 Normal >=60 [facility] Comment on above: Performed By: #### B MP, LIVER, TSH, CRP #### [facility] [address] [place] [address] Dr. Liana Ash EGFR-NON AF MEXICAN >60 Normal >=60 [facility] Comment on above: Performed By: #### B MP, LIVER, TSH, CRP #### [facility] [address] [address] [address] Liana Ash Glucose [Mass/Vol] 102 mg/dL Normal 74-106 [facility] Comment on above: Performed By: #### B MP, LIVER, TSH, CRP #### [facility] [address] [address] [address] Liana Ash Potassium [Moles/Vol] 4.3 mmol/L Normal 3.5-5.1 [facility] Comment on above: Performed By: #### B MP, LIVER, TSH, CRP #### [facility] [address] [address] [address] Liana Ash Sodium [Moles/Vol] 143 mmol/L Normal 136-145 [facility] Comment on above: Performed By: #### B MP, LIVER, TSH, CRP #### [facility] [address] [address] [address] Liana Ash Urea nitrogen [Mass/Vol] 14.0 mg/dL Normal 7.0-18.0 [facility] Comment on above: Performed By: #### B MP, LIVER, TSH, CRP #### [facility] [address] [address] [address] Liana Ash Urea nitrogen/Creatinin e [Mass ratio] 20.6 mg/mg Normal [facility] Comment on above: Performed By: #### B MP, LIVER, TSH, CRP #### [facility] [address] [address] [address] Liana Ash SED RATE RUFEERGRENon 2022 SED RATE 29 mm/hr Critically high <=20 [facility] Comment on above: Performed By: #### S EDR #### [facility] [address] [address] [address] Liana Ash TSHon 03-10-2023 TSH 1.164 uIU/mL Normal 0.358-3.740 [facility] Comment on above: Performed By: #### B MP, LIVER, TSH, CRP #### [facility] [address] [address] [address] Liana Ash Consultation Noteon 10-30-20 21 Consultation Note [id number] Normal [facility] HIPS BILATERAL 2 VWS WITH PE LVISon 07-15-2018 HIPS BILATERAL 2 VWS WITH PELVIS [facility] Department of Radiology [address] [place] [address] ======== Patient Name: RUBIA OCONNOR [...] impingement Electronically signed by:Bang Vanessa. 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 , Views (X-RAY, HIP): AP Hip, Frogleg Lateral Hip , , , Ordering Provider - MATT SYLVESTER MD , Encounters Encounter Date Encounter Type Care Provider Facility Start: 08-13-2024 End: 08-13-2024 ambulatory FLORECITA JO Not Available Start: 08-11-2024 End: 08-11-2024 ambulatory FLORECITA NVAEEDY Not Available Start: 08-09-2024 End: 08-09-2024 ambulatory ROBERTA LEIVA Not Available Start: 08-05-2024 End: 08-05-2024 ambulatory FLORECITA LUCIOY Not Available Start: 08-03-2024 End: 08-03-2024 ambulatory NATHANAEL BRITTON Not Available Start: 07-29-2024 End: 07-29-2024 ambulatory ROBERTA LEIVA Not Available Start: 07-28-2024 End: 07-28-2024 ambulatory JALIL RAMIREZ [...] Available Start: 02-20-2024 End: 02-20-2024 ambulatory QUINN Javier FIGUEROA Not Available Start: 02-19-2024 End: 02-19-2024 ambulatory ROBERTA CALI Not Available Start: 02-17-2024 End: 02-17-2024 ambulatory RADHA HYUN Not Available Start: 02-12-2024 End: 02-12-2024 ambulatory CECELIA NIEVES Not Available Start: 02-10-2024 End: 02-10-2024 ambulatory CECELIA NIEVES Not Available Start: 01-22-2024 End: 01-22-2024 ambulatory QUINN Javier FIGUEROA Not Available Start: 01-08-2024 Refill Jalil Tompkins Work Phone: [facility] Comment on above: Cervical spondylosis without myelopathy (Primary Dx) Start: 01-02-2024 Bamboo flowsheet Santosh christianson MD Work Phone: [facility] Start: 01-02-2024 Bamboo flowsheet Santosh christianson MD Work Phone: [facility] Start: 01-02-2024 End: 01-02-2024 ambulatory SANTOSH FARLEY Not Available Start: 01-01-2024 Chart abstracting Santosh lester MD Work Phone: [facility] Start: 12-31-2023 End: 12-31-2023 ambulatory JALIL RAMIREZ Not Available Start: 11-12-2023 End: 11-12-2023 ambulatory SANTOSH FARLEY Not Available Start: 10-28-2023 End: 10-28-2023 ambulatory SANTOSH FARLEY Not Available Start: 10-14-2023 End: 10-14-2023 ambulatory FLORECIAT JO Not Available Start: 03-22-2023 End: 03-23-[address] JALIL RAMIREZ Facility:[facility] Start: 03-10-2023 End: 03-11-[address] JALIL RAMIREZ Facility:[facility] Plan of Treatment Date Care Activity Detail Author Start: 06-30-2024 End: 06-30-2024 Patient encounter procedure 06/30/2024 7:15 AM EDT Office Visit [facility] [address] [place] [phone] Jalil Ramirez MD [address] [place] [phone] [facility] Start: 03-01-2024 End: 03-01-2024 Clinical Support 03/01/2024 8:20 AM EDT Clinical Support [facility] [address] [address] Santosh Farley MD [address] [facility] [address] [place] [address] [place] [address] [facility] Start: 01-02-2024 End: 01-02-2024 Clinical Support [facility] Comment on above: Arrived Start: 08-01-2023 Influenza vaccination Influenza Vacc ine (#1) [facility] Start: 2017 Screening for malign ant neoplasm of breast Mammogram [facility] Start: 1977 Screening for malign ant neoplasm of colon [facility] Immunizations Immunization Date Immunization Notes Care Provider Fa cili 08-10-2019 influenza virus vacc ine, unspecified formulation Santosh Farley MD Work Phone: [facility] Healthcare Payers Date Payer Category Payer Unknown [employer] [id number] 2023-Present [address] [place] [address] [id number] 2023 Unknown [id number] 2023 Unknown [id number] 2023 Medicaid [id number] 1977 Unknown [id number] 2.16.840.1.126236.3.579.2.5 93 1977 Unknown [id number] 2.16.840.1.938359.3.579.2.5 93 1977 Unknown [id number] 2.16.840.1.150266.3.579.2.1 286 1977 Unknown [id number] 2.16.840.1.769800.3.579.2.1 259 1977 Unknown [id number] 2.16.840.1.551065.3.579.2.1 259 1977 Unknown [id number] 2.16.840.1.079664.3.579.2.1 259 1977 Unknown [id number] 2.16.840.1.370407.3.579.2.1 259 1977 Unknown [id number] 2.16.840.1.566264.3.579.2.1 259 1977 Unknown [id number] 2.16.840.1.069083.3.579.2.1 259 1977 Unknown [id number] 2.16.840.1.265267.3.579.2.1 259 1977 Unknown [id number] 2.16.840.1.478625.3.579.2.1 259 1977 Unknown [id number] 2.16.840.1.823055.3.579.2.1 259 1977 Unknown [id number] 2.16.840.1.522975.3.579.2.1 259 1977 Unknown [id number] 2.16.840.1.109630.3.579.2.1 259 1977 Unknown [id number] 2.16.840.1.598836.3.579.2.1 259 1977 Unknown [id number] 2.16.840.1.532826.3.579.2.1 259 1977 Unknown [id number] 2.16.840.1.197814.3.579.2.1 259 1977 Unknown [id number] 2.16.840.1.853058.3.579.2.1 259 1977 Unknown [id number] 2.16.840.1.201587.3.579.2.1 259 1977 Unknown [id number] 2.16.840.1.662328.3.579.2.1 259 1977 Unknown [id number] 2.16.840.1.232433.3.579.2.1 259 1977 Unknown [id number] 2.16.840.1.635795.3.579.2.1 259 1977 Unknown [id number] 2.16.840.1.860242.3.579.2.1 259 1977 Unknown [id number] 2.16.840.1.817174.3.579.2.1 259 1977 Unknown [id number] 2.16.840.1.790465.3.579.2.1 259 1977 Unknown [id number] 2.16.840.1.373777.3.579.2.1 259 1977 Unknown [id number] 2.16.840.1.936331.3.579.2.1 259 1959 Private Health Insurance [id number] Social History Date Type Detail Facility Start: 05-12-2023 Tobacco smoking stat [facility] Never smoked tobacco [facility] Start: 05-12-2023 Tobacco use and exposure Smoke less tobacco non-user [facility] Start: 01-01-2024 End: 02-02-2024 Alcohol intake Current drinker of alcohol (finding) [...] section and content) DATE CREATED AUTHOR 05/22/2019 [facility] DATE CREATED AUTHOR AUTHOR'S ORGANIZ ATION 10/31/2021 [facility] DATE CREATED AUTHOR AUTHOR'S ORGANIZ ATION 03/29/[address] [facility] DATE CREATED AUTHOR AUTHOR'S ORGANIZ ATION 05/01/2024 [facility] DATE CREATED AUTHOR AUTHOR'S ORGANIZ ATION 08/15/2024 [facility] EP[employer] Care Teams (unrecognized sec tion and content) Finish Saw Operator Relationship Specialty Start Date End Date Jalil Ramirez MD [address] [place] [address] PCP - General Family Medicine 12/31/23 Finish Saw Operator Relationship Specialty Start Date End Date Jalil Ramirez MD [address] [place] [address] PCP - General Family Medicine [...] BE BASED ON THE PRIMARY CLINICAL RECORDS. [facility]. provides no warranty or guarantee of the accuracy or completeness of information in this document.
[2024-08-16] MEDS: LIDOCAINE HCL 10 ML, SODIUM BICARBONATE 1 MEQ INJ (10:30)
[2024-08-16] MEDS: LIDOCAINE HCL/EPINEPHRINE 10 ML, SODIUM BICARBONATE 1 MEQ INJ (10:30)
--- NOTE | 2024-08-16 11:15 | SUR.PREOP ---
08/06/24 Pt instructed on procedure, date, time, and prep.
== END 2024-08-16 10:55 | disposition home or self-care (01) ==
LOC: US 09:44
PROVIDERS: Radiology Diagnostic Radiology; PCP Family Medicine; Visit Provider Family Medicine
DX: N60.01 Solitary cyst of right breast (principal); R92.8 Other abnormal and inconclusive findings on diagnostic imaging of breast
CPT/HCPCS: 19083; 77065; 88305